=== PATIENT | female | born 1990 | race Caucasian/White ===

== ENCOUNTER 2016-08-07 17:17 | Inpatient (IN) ==
[2016-08-07] MEDS ORDERED: LEVAQUIN ONE (22:35)
[2016-08-07] MEDS ORDERED: TYLENOL ONE (22:35)
[2016-08-07] MEDS ORDERED: D5W ONE (22:35)
[2016-08-07] MEDS ORDERED: NS 1,000 ML ONE (22:35)
[2016-08-07] MEDS ORDERED: LOVENOX ONE (22:35)
[2016-08-07] MEDS ORDERED: SODIUM CHLORIDE 0.9% 10 ML ONE (22:48)
[2016-08-07] MEDS ORDERED: PROTONIX ONE (22:48)
[2016-08-07] MEDS ORDERED: VANCOMYCIN 1 GM/NS 1 GM/250 ML IVPB ONE (22:48)
--- NOTE | 2016-08-07 23:26 | Diag Imaging Result Document ---
PROCEDURE NAME: CHEST-PORTABLE - 08/07/2016 ERECT AP PORTABLE CHEST: TIME: 2105 hours. FINDINGS: There are patchy alveolar opacities bilaterally. There are no previous studies. IMPRESSION: Pneumonia.
[2016-08-07] MEDS ORDERED: MOTRIN ONE (23:46)
[2016-08-08 01:21] LABS: AGAP 13; CHLORIDE 95 mmol/L (98-107); POTASSIUM 4.4 mmol/L (3.5-5.1); SODIUM 134 mmol/L (136-145); TCO2 26 mmol/L (25-35)
[2016-08-08 01:22] LABS: ALBUMIN 2.4 g/dL (3.5-5.0); ALKALINE PHOSPHATASE 258 U/L (32-104); BUN 14 mg/dL (8-22); CALCIUM 8.1 mg/dL (8.8-10.2); COSMO 272; TOTAL PROTEIN 6.1 g/dL (6.3-8.3)
[2016-08-08 01:23] LABS: GOT 49 U/L (10-30); GPT 57 U/L (10-36)
[2016-08-08] MEDS ORDERED: ZOFRAN IV PRN (01:43)
[2016-08-08] MEDS ORDERED: VANCOMYCIN IV PER PHARMACY MISC SCH (01:45)
[2016-08-08] MEDS ORDERED: SODIUM CHLORIDE 0.9% INJ PRN (01:49)
[2016-08-08] MEDS ORDERED: PHENERGAN IV PRN (01:49)
--- NOTE | 2016-08-08 01:49 | HISTORY AND PHYSICAL ---
CHIEF COMPLAINT: Cough, low back pain and chest pain. HISTORY OF PRESENT ILLNESS: This is a 26-year-old female who presented to the emergency room today complaining of chest pain, cough, and low back pain that started last week but has progressively gotten worse. Her mother is at the bedside. States that she has for the last 3 days mostly not gotten out of her bed related to weakness and fatigue. On initial interview it was noted that the patient was jaundiced. Laboratory data and a chest x-ray were obtained which showed an elevated white blood cell count of 20.16, also showed an elevated total bilirubin of 3.90 with grossly normal liver function tests. ALT 57, AST 49. The chest x- ray showed bilateral lower lobe infiltrates consistent with pneumonia. Also should be noted that the patient was a heavy IV drug user for 6-7 years. She has been clean for almost 1 year. She has no real past medical history other than a slight mental disability that causes her to be on disability and unable to work as well as mild depression. She will be admitted to the medical floor inpatient for further evaluation and treatment. PAST MEDICAL HISTORY: 1. Depression. 2. History of IV drug use. 3. Tobacco abuse. PREVIOUS SURGICAL HISTORY: 1. Tonsillectomy. 2. BTL. SOCIAL HISTORY: Lives at home with her mother and father. She is disabled related to a mental disability and does not work. She denies current IV drug use or abuse. Denies alcohol use. Did have a 6-7 year of IV drugs usually opiates and she has been clean for almost 1 year. She is an everyday smoker, smokes roughly 10 cigarettes a day. FAMILY HISTORY: Grandmother at age 70 from myocardial infarction. Mother has osteoarthritis. HOME MEDICATIONS: Wellbutrin 50 mg p.o. daily. ALLERGIES: No known drug allergies. REVIEW OF SYSTEMS: Fourteen point review of systems pertinent positives were chest pain with cough that is reproducible with palpation, cough with no sputum, and low back pain. All other systems reviewed and found to be negative. PHYSICAL EXAMINATION: VITAL SIGNS: Temp 100.1 degrees, pulse 120, sinus tachycardia on monitor, respirations 18-22, oxygen saturation 98% on room air. GENERAL: Very ill-appearing 26-year-old female who is noted to be jaundiced. Answers all questions appropriately. Lying in the ER stretcher in no acute distress. HEENT: Head is atraumatic, normocephalic. Pupils equal, round, reactive to light. Extraocular eye movement intact. Sclerae is icteric. Conjunctiva is not pale. Oral mucosa is dry. NECK: Supple. No JVD. Trachea is midline. CARDIAC: Regular rhythm. Sinus tachycardia on monitor. Rate of 120. S1-S2 appreciated. A 2/6 systolic murmur best heard at the apex. No gallops. No rubs. CHEST: Symmetrical rise and fall with respirations. Chest pain which is reproducible to palpation. LUNGS: Decreased bilaterally. No rhonchi, wheezes or rales. Symmetrical rise and fall with respirations. ABDOMEN: Soft, nondistended. Tender mainly in the epigastric area. No rebound tenderness. No organomegaly. Bowel sounds present in all 4 quadrants normoactive. No pulsatile mass. EXTREMITIES: No clubbing, cyanosis, or edema. 2+ pedal pulses. GENITOURINARY: The patient voids, otherwise deferred. SKIN: Noted to be jaundiced, otherwise warm, dry and intact. NEUROLOGICAL: Alert and oriented x3. Cranial nerves 2-12 appear to be grossly intact. BACK: No costovertebral angle tenderness. No vertebral tenderness. Tenderness noted in right ischial tuberosity. DIAGNOSTIC DATA: Chest x-ray shows bilateral lower lobe infiltrates. LABORATORY DATA: WBC 20.16, hemoglobin 7.8, hematocrit 24, platelet count 464, 000. Sodium 134, potassium 4.4, chloride 95, carbon dioxide 26, BUN 8.1, creatinine 0.6, glucose 149, total bilirubin 3.90, alkaline phosphatase 258, ALT 57, AST 49. EKG shows sinus tachycardia with a rate of 120. Urine had 10-20 WBCs but was leukocyte esterase negative and no bacteria was noted. ASSESSMENT AND PLAN: 1. Bilateral lower lobe pneumonia. We will give Levaquin 750 mg IV daily as well as Rocephin 1 g IV daily. Blood cultures x2 have been ordered. 2. Possible endocarditis. Patient has a heavy past history of IV drug use and abuse. We will cover with vancomycin 1 g IV now and then Pharmacy to dose. We will consult Dr. Jose Roberto Almeida. Echocardiogram in a.m. 3. Anemia of questionable etiology. We will order anemia panel. 4. Hyperbilirubinemia. We will order right upper quadrant ultrasound. Liver enzymes were grossly normal. 5. History of intravenous drug use and abuse, aware. 6. Depression. Continue Wellbutrin 50 mg p.o. daily. ADDITIONAL ORDERS: We will use Lovenox 40 mg subcutaneously daily for VT prophylaxis. Normal saline at 100 mL an hour for gentle fluid rehydration. The patient as noted above was a fairly long-term IV drug user. We will check for HIV as well as a hepatitis panel. We will conduct a full body bone scan to rule out osteomyelitis. Dictated by NOAH Urias for Opal Martinez MD Patient was seen and examined by me . Case was discussed with LUMBER PILER OPERATOR. cc: NOAH Urias MD MTDD
[2016-08-08] MEDS ORDERED: LEVAQUIN 750 MG/D5W 750 MG/150 ML IVPB IV SCH (02:00)
[2016-08-08] MEDS ORDERED: ROCEPHIN 1 GM/NS 1 GM/50 ML IVPB IV SCH (02:00)
[2016-08-08] MEDS ORDERED: VANCOMYCIN 500 MG/NS 500 MG/100 ML IVPB IV ONE (02:00)
[2016-08-08 02:16] LABS: COLOR YELLOW; INR 1.13; UR EPITHELIAL CELLS <10 /HPF (<10); URINE BACTERIA NEGATIVE /HPF; URINE MICRO REVIEW NEEDED? NO; URINE RBC <10 /HPF (<10); URINE SOURCE CLEAN CATCH; URINE WBC <10 /HPF (<10)
[2016-08-08 02:17] LABS: GLUCOSE URINE NEGATIVE (NEGATIVE); TURBIDITY URINE HAZY (CLEAR)
[2016-08-08 02:18] LABS: BILIRUBIN URINE SMALL (NEGATIVE); BLOOD URINE MODERATE (NEGATIVE); PROTEIN URINE TRACE mg/dL (NEGATIVE); SP GRAVITY URINE 1.023
[2016-08-08 02:19] LABS: HEMOGLOBIN 7.8 g/dL (12.0-16.0); LEUKOCYTES URINE SMALL (NEGATIVE); MCH 21.2 PG (27-31); MCV 65.2 FL (81-99); NITRITE URINE NEGATIVE (NEGATIVE); RBC 3.68 XMIL (4.2-5.4); UROBILINOGEN URINE 4 mg/dL (NORMAL)
[2016-08-08 02:20] LABS: BASO% 0.2 % (0.0-0.8); EOS# 0.02 X1000 (0.0-0.7); EOS% 0.1 % (0.0-10.0); IMM GRAN# 0.19 X1000 (0.0-0.04); IMM GRAN% 0.9 % (0.0-0.5); LYMPH% 7.9 % (20.5-51.1); MANUAL DIFF NEEDED? YES; MCHC 32.5 g/dL (33-37); MONO# 1.09 X1000 (0.11-0.59); MONO% 5.4 % (1.7-9.3); MPV 10.9 FL (7.4-10.4); NEUT% 85.5 % (42.2-75.2); PLT 464 X1000 (130-400)
[2016-08-08 02:21] LABS: HYPOCHROM 2+; LYMPHS 8 % (21-51); MONO 2 % (1-9)
[2016-08-08 07:55] LABS: BASO% 0.2 % (0.0-0.8); EOS# 0.11 X1000 (0.0-0.7); EOS% 0.7 % (0.0-10.0); HEMATOCRIT 21.6 % (37.0-47.0); HEMOGLOBIN 6.7 g/dL (12.0-16.0); IMM GRAN# 0.19 X1000 (0.0-0.04); IMM GRAN% 1.1 % (0.0-0.5); LYMPH# 1.91 X1000 (1.2-3.4); LYMPH% 11.6 % (20.5-51.1); MANUAL DIFF NEEDED? YES; MCH 20.3 PG (27-31); MCV 65.5 FL (81-99); MONO# 1.06 X1000 (0.11-0.59); MONO% 6.4 % (1.7-9.3); MPV 10.7 FL (7.4-10.4); PLT 421 X1000 (130-400)
[2016-08-08 08:16] LABS: FERRITIN 351 ng/mL (13-150)
[2016-08-08 08:30] LABS: BANDS 8 % (0-1); LYMPHS 16 % (21-51); MONO 4 % (1-9)
[2016-08-08 08:31] LABS: HYPOCHROM 3+; TARGET CELLS OCCASIONAL
[2016-08-08 08:35] LABS: AGAP 11; BUN 16 mg/dL (8-22); CHLORIDE 99 mmol/L (98-107); COSMO 273; MAGNESIUM 2.2 mg/dL (1.5-2.7); POTASSIUM 4.1 mmol/L (3.5-5.1); SODIUM 136 mmol/L (136-145); TCO2 26 mmol/L (25-35)
[2016-08-08] MEDS: SODIUM CHLORIDE 0.9% INJ PRN (09:40)
[2016-08-08] MEDS: WELLBUTRIN PO SCH (09:40)
[2016-08-08] MEDS: PROTONIX IV SCH (09:40)
--- NOTE | 2016-08-08 12:59 | Diag Imaging Result Document ---
PROCEDURE NAME: US ABDOMEN-COMPLETE - 08/08/2016 ULTRASOUND ABDOMEN: FINDINGS: The gallbladder is visualized and demonstrates no abnormalities. There are no gallstones identified. The technologist reports negative sonographic Leigh sign. The common bile duct is normal caliber at 4 mm. There are no abnormalities of the liver identified. The spleen is borderline prominent, measuring approximately 13 cm in length by 6.4 cm in diameter. There is a small amount of ascites. There are apparent small bilateral pleural effusions. The renal cortices are possibly mildly echodense diffusely which can be seen with medical renal disease. There is no renal mass or hydronephrosis identified. Visualized portions of the pancreas are unremarkable. Abdominal aorta and IVC appear normal caliber. IMPRESSION: 1. No visible gallbladder abnormality. Normal caliber common bile duct at 4 mm. 2. No visible liver abnormality. Borderline splenomegaly. 3. Small amount of ascites. Apparent small bilateral pleural effusions.
--- NOTE | 2016-08-08 13:50 | PROGRESS NOTE ---
DATE: 08/08/2016 SUBJECTIVE: This is a 25 year old who presented with cough, low back pain and chest pain. She presented to the emergency room complaining of chest pain, cough, low back pain that started about a week ago and has had progression and got worse. Her mother is at the bedside and states it is for the last 3 days, mostly not gotten out of her bed, resulting weakness and fatigue. On initial interview, it was noted that the patient was jaundiced. Laboratory data and chest x-ray were obtained which showed elevated white blood cell count of 20,160, elevated total bilirubin of 3900, grossly normal liver functions, ALT was 57, AST was 49. Chest x-ray showed bilateral lower lobe infiltrate consistent with pneumonia. Also was noted the patient was a heavy IV drug user for 6 or 7 years. She reports she has been clean for a year. No real past medical history other than slight mental disability that causes her to be unable to work, with depression. PAST MEDICAL HISTORY: 1. Depression. 2. Six to 7 year history of IV drug use, is reported to be clean for a year. 3. Tobacco use. 4. Status post tonsillectomy. 5. Status post bilateral tubal ligation. ASSESSMENT: 1. She was admitted with bilateral lower lobe pneumonia, on Levaquin and Rocephin. 2. Possible endocarditis. We checked an echocardiogram. We asked Dr. Almeida to get involved as well. May need an esophageal echocardiogram. 3. Anemia of questionable etiology. 4. Hyperbilirubinemia with practically normal transaminases. 5. History of intravenous drug abuse, reported to be clean for a year. 6. Depression. PLAN: Looking at the orders, on vancomycin and ceftriaxone 1 g q.24 hours. Fluids going with normal saline at 100 mL an hour. She is on Lovenox 40 mg subcutaneously q.24 hours. She is also on Levaquin 750 mg IV q.24 hours. We will continue present therapy. cc: Norris Oliveira MD
[2016-08-08] MEDS: VANCOMYCIN 1,500 MG in NS 250 ML IV SCH (16:22)
--- NOTE | 2016-08-08 16:45 | CONSULTATION ---
DATE OF CONSULTATION: 08/08/2016 CONCLUSION: The patient is admitted to the hospital with bilateral pneumonia. She has a history of IV drug abuse. She is complaining of pain in her low back area and in the right hip area, which could represent an infection. RECOMMENDATIONS: I have ordered a sputum Gram stain and culture. I agree with treating the patient with vancomycin. I have substituted cefepime for Rocephin and Levaquin. Dr. Oliveira has already ordered an echocardiogram. PRESENT ILLNESS: The patient tells me that for the past 4 days she has had a cough occasionally productive of green sputum. She has also had fever up to 106 degrees. She complains of being dyspneic. Her chest x-ray shows bilateral opacities. CBC shows a white count that has gotten down to 16,530, hemoglobin 6.7, and platelet count 421,000. Creatinine is 0.6. GFR is greater than 60. Bilirubin is 3.9 and alkaline phosphatase is 258. The patient has been started on a combination of Rocephin, Levaquin, and vancomycin. PAST MEDICAL HISTORY/REVIEW OF SYSTEMS: Eyes and Ears: She denies difficulty hearing or seeing. Neck: No stiffness. Respiratory: The patient is coughing and on x-ray has what appears to be bilateral pneumonia. Cardiovascular: No chest pain or palpitations. Gastrointestinal: No nausea or vomiting. Patient has not passed a stool for 2 days. Genitourinary: She is not having dysuria or flank pain. Neurologic: The patient is complaining of low back pain and pain in the right hip. She does not have any motor or sensory loss. She is not having seizures. Endocrine: No history of diabetes or thyroid disease. Bones, Joints, Muscles: She is having pain in her low back and in the right hip area. The remainder of the patient's review of systems was completed and was negative. PROGRAMMING SPECIALIST HISTORY: She is a 2, para 2, AB 0. She has had a tubal ligation. Her last menstrual period was mid July. She is not on any control device. PREVIOUS HOSPITALIZATIONS AND OPERATIONS: She has had labor and deliveries, and a tubal ligation. MEDICAL DISEASES: Positive for depression. Patient is an IV drug abuser. Her last time was approximately a year ago. INFECTIOUS DISEASE HISTORY: Positive for UTI. Negative for pneumonia. FAMILY HISTORY: Positive for diabetes mellitus, myocardial infarction, and cancer. SOCIAL HISTORY[place] She sm[place] cigarettes. She does not have any pets at home. She is a single mother. She is raising her children. HOME MEDICATIONS: Subutex, Wellbutrin, ibuprofen, and Leidy-Colace. PHYSICAL EXAMINATION: Vital Signs: Temperature is 97.9 degrees, pulse 87, respirations 16, blood pressure 85/53. General: This is a somewhat ill-appearing young female. She is in no acute distress, however. Head, Eyes, Ears, Nose, Throat: She can hear my spoken words and see near objects. No drainage noted from the nose or ears. The patient's oral hygiene was good. Neck: No meningismus. Lungs: Clear to auscultation. Cardiovascular: Heart rate was rapid with a systolic murmur. Abdomen: Soft and nontender. Bones, Joints, Muscles: When I moved the patient's right hip passively, she did have pain. There was no swelling or erythema in the right hip area. The low back area was not tender or swollen. Neurologic: Patient is awake. She can move her extremities. There is no tremor. Her sensation is intact to touch. Her memory, as regarding her medical history, appeared to be intact. Thank you for the consult. cc: Jose Roberto Almeida MD
[2016-08-08] MEDS: NS 1,000 ML IV SCH (18:00)
[2016-08-08] MEDS: TYLENOL PO PRN (20:32)
[2016-08-08] MEDS: MAXIPIME 2 GM/NS 2 GM/100 ML IVPB IV SCH (20:34)
[2016-08-08] MEDS: LOVENOX SUBQ SCH (21:05)
[2016-08-08] MEDS: MOTRIN PO PRN (23:04)
[2016-08-09] MEDS: VANCOMYCIN 1,500 MG in NS 250 ML IV SCH ×2 (00:33→14:19)
[2016-08-09] MEDS: NS 1,000 ML IV SCH ×3 (04:34→17:57)
[2016-08-09] MEDS: TYLENOL PO PRN ×2 (04:34→20:48)
[2016-08-09] MEDS: MAXIPIME 2 GM/NS 2 GM/100 ML IVPB IV SCH ×2 (10:39→20:42)
[2016-08-09] MEDS: WELLBUTRIN PO SCH (10:40)
[2016-08-09] MEDS: PROTONIX IV SCH (10:40)
[2016-08-09 10:43] LABS: HIV ANTIBODY SCREEN SEE COMMENTS
--- NOTE | 2016-08-09 11:15 | EKG Report ---
Test Performed on : 08/07/2016 8:18:19 PM Test Reason : ED. Not ordered in [place] Blood Pressure : / mmHG Vent. Rate : 120 BPM Atrial Rate : 120 BPM P-R Int : 132 ms QRS Dur : 084 ms QT Int : 302 ms P-R-T Axes : 059 018 062 degrees QTc Int : 426 ms Sinus tachycardia. Otherwise normal ECG No previous ECGs available Unconfirmed Result
[2016-08-09 11:52] LABS: BASO% 0.2 % (0.0-0.8); EOS# 0.03 X1000 (0.0-0.7); EOS% 0.2 % (0.0-10.0); HEMATOCRIT 26.2 % (37.0-47.0); HEMOGLOBIN 8.5 g/dL (12.0-16.0); IMM GRAN# 0.31 X1000 (0.0-0.04); IMM GRAN% 1.8 % (0.0-0.5); LYMPH# 1.25 X1000 (1.2-3.4); LYMPH% 7.2 % (20.5-51.1); MANUAL DIFF NEEDED? YES; MCH 22.3 PG (27-31); MCHC 32.4 g/dL (33-37); MCV 68.6 FL (81-99); MONO# 0.48 X1000 (0.11-0.59); MONO% 2.8 % (1.7-9.3); MPV 10.3 FL (7.4-10.4); NEUT% 87.8 % (42.2-75.2); PLT 511 X1000 (130-400); RBC 3.82 XMIL (4.2-5.4)
[2016-08-09 11:56] LABS: HEPATITIS PROFILE ACUTE SEE COMMENTS
[2016-08-09 12:14] LABS: BANDS 5 % (0-1); LYMPHS 6 % (21-51); MONO 3 % (1-9)
[2016-08-09 12:15] LABS: HYPOCHROM 1+
[2016-08-09 12:16] LABS: TARGET CELLS OCCASIONAL
--- NOTE | 2016-08-09 13:35 | PROGRESS NOTE ---
DATE: 08/09/2016 SUBJECTIVE: Ms. Sullivan is feeling better. She is eating lunch. Remains afebrile. PHYSICAL EXAMINATION: Vital Signs: Temperature 98.9 degrees, pulse 110, respirations 16, blood pressure 102/64. Lungs: Are clear anterolateral and posterior. Cardiovascular Examination: Regular rhythm and rate without murmur or S3. Abdomen: Soft. Skin: Is warm and dry. Is and Os: Good urine output by report. LAB: Reviewed from this morning, white count 17,260, hematocrit 26, platelet count 511,000. Electrolytes: Sodium 136, potassium 4.2, chloride 99, BUN 16, creatinine 0.6. ASSESSMENT AND PLAN: 1. Bilateral pneumonia. 2. History of intravenous drug use. 3. Complaining of pain in her lower back and right hip area which could represent infection as well. PLAN: Dr. Almeida is following. I ordered a Gram stain and culture. Treating patient with vancomycin, substituted cefepime for Rocephin and Levaquin. Echocardiogram has been ordered, transthoracic. Continue present therapy. She is complaining of some right arm and right leg pain, try to avoid IV opioids if we can. cc: Norris Oliveira MD
--- NOTE | 2016-08-09 14:54 | PROGRESS NOTE ---
DATE: 08/09/2016 PRESENT ILLNESS: The patient was admitted to the hospital. She has a bilateral pneumonia. In addition, she is complaining of pain in the low back area and the right hip area, the etiology of which is uncertain to me at this time. MEDICATIONS: The patient is receiving intravenous cefepime and vancomycin. This is day 1 of treatment with them. PHYSICAL EXAMINATION: Vital Signs: Temperature is 98.9 degrees, pulse 113, respirations 14, blood pressure 102/64. General: This is a somewhat ill-appearing, young female. She is in no acute distress at this time. Ear/nose/throat: No drainage noted from the nose or ears. Lungs: Clear to auscultation. Cardiovascular: Regular heart rate. Abdomen: Soft and nontender. The patient said that it caused her some pain when I flexed at the right hip passively. There was no swelling in either hip area. LAB AND X-RAY: Patient's CBC for today showed a white count of 17,260, hemoglobin 8.5, and platelet count 511,000. Blood cultures thus far are sterile. HIV antibodies were negative. Hepatitis profile was nonreactive. The patient had a bone scan today, the results of which are pending. ASSESSMENT AND PLAN: Patient has pneumonia. She may have a bone or joint infection also. My plan is to continue her antibiotics and to find the results of the bone scan. COMORBIDITY: Her main comorbidity is IV drug abuse, which she told me she has not done in approximately 1 year. cc: Jose Roberto Almeida MD
--- NOTE | 2016-08-09 14:59 | Diag Imaging Result Document ---
PROCEDURE NAME: BONE SCAN, TOTAL BODY - 08/09/2016 THREE PHASE BONE SCAN: FINDINGS: 28.3 mCi of MDP administered. Coned down images over of the pelvis were obtained. There is symmetrical activity on the immediate blood flow images. Symmetrical activity remains on the 5, 10, and 15 minute delayed images. No focal area of abnormal increased activity within the pelvis on the delayed images. The hips are symmetrical as are the sacroiliac joints. Mild increased activity in the mid lumbar spine may simply be degenerative changes. IMPRESSION: No evidence of osteomyelitis involving the pelvis.
--- NOTE | 2016-08-09 16:19 | ECHO REPORT ---
ORDER DATE: 08/08/2016 INTERPRETING PHYSICIAN: Dr. Fitzpatrick REQUESTING PHYSICIAN: CLINICAL INDICATIONS: This is a 25-year-old female with chest pain, cough, fatigue. M-MODE MEASUREMENTS: Right ventricle: 2.6 cm. Left ventricle end diastole: 4.9 cm. Left ventricle end systole: 2.6 cm. Posterior wall: 1.0 cm. Interventricular septum: 1.0 cm. Left atrium: 2.6 cm. Aortic root: 3.1 cm. SUMMARY OF 2-DIMENSIONAL IMAGIN. The left ventricular function appears to be normal. Ejection fraction is 60%. No wall motion abnormality. 2. The right ventricle appears to be normal. 3. The atria appear to be normal. 4. Inferior vena cava is not dilated. 5. The tricuspid valve is abnormal. It shows thickening of the lateral and septal leaflets. There is a mobile element to it. The longest dimension in the AP dimension is 1.1 cm. The width is 1.2 cm. That is consistent with a vegetation. Color flow mapping shows a mild to moderate degree of regurgitation. The vegetation has some mobile element to it. 6. The pulmonic valve looks normal. Color flow mapping is unremarkable. 7. Mitral valve looks normal. Color flow mapping shows mild degree of regurgitation. 8. Pulse wave Doppler of mitral inflow is normal. 9. Tissue Doppler of septal and lateral mitral annulus averages 6 cm. 10.Pulmonary venous flow is normal. 11.There is no diastolic dysfunction. 12.Aortic valve looks normal. Color flow mapping is unremarkable. 13.There is no pericardial effusion, mass or thrombus. CONCLUSIONS: 1. Normal left ventricular systolic function. 2. Mild to moderate degree of tricuspid regurgitation with the presence of a vegetation at the level of the tricuspid valve. This is a diagnostic study for this condition based on the patient's history. 3. Mild degree of mitral regurgitation with normal diastolic function. 4. Pulmonary systolic pressure is estimated at 39 mmHg. Clinical correlation is recommended. cc: MD Segundo Chapman CRNP
[2016-08-09] MEDS: MOTRIN PO PRN (17:58)
[2016-08-09] MEDS: LOVENOX SUBQ SCH (21:13)
[2016-08-10] MEDS: NS 1,000 ML IV SCH ×3 (01:24→16:39)
[2016-08-10] MEDS: VANCOMYCIN 1,800 MG in NS 250 ML IV SCH ×2 (01:57→14:44)
[2016-08-10] MEDS ORDERED: NS 500 ML IV ONE (09:17)
[2016-08-10] MEDS ORDERED: TYLENOL PO ONE (09:17)
--- NOTE | 2016-08-10 09:24 | EKG Report ---
Test Performed on : 08/10/2016 09:10:04 AM Test Reason : chest pain Blood Pressure : / mmHG Vent. Rate : 141 BPM Atrial Rate : 141 BPM P-R Int : 130 ms QRS Dur : 080 ms QT Int : 264 ms P-R-T Axes : 043 -15 069 degrees QTc Int : 404 ms Sinus tachycardia. Low voltage QRS Borderline ECG When compared with ECG of 07-AUG-2016 20:18, (Unconfirmed) Nonspecific T wave abnormality now evident in Inferior leads Confirmed by Margy GARVEY, Robert Jimenez ([id number]) on 08/11/2016 5:48:14 PM
[2016-08-10 09:52] LABS: BASO% 0.3 % (0.0-0.8); EOS# 0.03 X1000 (0.0-0.7); EOS% 0.2 % (0.0-10.0); HEMATOCRIT 25.1 % (37.0-47.0); HEMOGLOBIN 8.2 g/dL (12.0-16.0); IMM GRAN# 0.45 X1000 (0.0-0.04); IMM GRAN% 2.6 % (0.0-0.5); LYMPH# 1.86 X1000 (1.2-3.4); LYMPH% 10.8 % (20.5-51.1); MCH 22.3 PG (27-31); MCHC 32.7 g/dL (33-37); MCV 68.4 FL (81-99); MONO# 1.06 X1000 (0.11-0.59); MONO% 6.2 % (1.7-9.3); MPV 9.9 FL (7.4-10.4); NEUT% 79.9 % (42.2-75.2); PLT 589 X1000 (130-400); RBC 3.67 XMIL (4.2-5.4)
[2016-08-10] MEDS: PROTONIX IV SCH (09:53)
[2016-08-10] MEDS: WELLBUTRIN PO SCH (09:54)
[2016-08-10] MEDS: MAXIPIME 2 GM/NS 2 GM/100 ML IVPB IV SCH ×2 (09:54→21:23)
--- NOTE | 2016-08-10 10:07 | PROGRESS NOTE ---
DATE: 08/10/2016 SUBJECTIVE: This morning, a CAT call was called on Ms. Sullivan because of acute onset of centrally located chest pain associated with fever and borderline low blood pressure. Upon arrival, Ms. Sullivan was pretty much stable in bed. She says she was feeling fine except that she had pains all over her body. OBJECTIVE: Vital Signs: Blood pressure is 96/50, pulse of 130. Temperature is 101.8 degrees. General Examination: Ms. Sullivan is a 35-year-old, female. She was in bed. She did not seem to be in any remarkable distress. HEENT: Mucosa is pink, mildly dry. Anicteric and acyanotic. Neck: Supple. Chest: Good air entry bilaterally. Few bibasilar crepitations. Cardiovascular: Regular rate and rhythm. Tachycardic. No gallops. Abdomen: Soft, nontender. Bowel sounds were present. Extremities: No pedal edema. PICKER PACKER: Patient was alert and oriented x4. There is no focal neurological deficit. Laboratory Data: There is no lab work for today. Remarkable Studies: An echocardiogram which was done on 08/08/2016 shows mild to moderate degree of tricuspid regurgitation with presence of vegetation at the level of the tricuspid valve. This is a diagnostic study for the condition based on the patient's history. ASSESSMENT: 1. Sepsis, likely secondary to underlying endocarditis. 2. 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 3. Multifocal patchy bilateral pneumonia, likely secondary to septic emboli. 4. Microcytic anemia. The patient is status post 1 unit of packed red blood cell transfusion. Hemoglobin and hematocrit were 8.5 and 26.2 yesterday. We will repeat it this morning. 5. Generalized muscular pain. I am unsure if this is related to maybe some form of drug withdrawal or she does have an underlying chronic pain syndrome. GENERAL PLAN: Ms. Sullivan is relatively stable. However, she is tachycardic. She is febrile. She had a white count up to yesterday. She does show signs of sepsis. She is currently on vancomycin and cefepime. Blood cultures so far have been no growth for 48 hours. We are going to repeat her blood cultures. I will repeat a chest x-ray. We will continue with the current antibiotics. I am giving her bolus of 1000 mL of normal saline and continue with the gentle hydration. I will review the patient this afternoon to see if we have any labs back and make changes accordingly. Critical time spent 45 minutes. cc: Jeyson Friedman MD MTDD
[2016-08-10 10:08] LABS: MANUAL DIFF NEEDED? NO
[2016-08-10 10:09] LABS: AGAP 10; ALBUMIN 1.7 g/dL (3.5-5.0); ALKALINE PHOSPHATASE 147 U/L (32-104); BUN 13 mg/dL (8-22); CALCIUM 7.4 mg/dL (8.8-10.2); CHLORIDE 106 mmol/L (98-107); COSMO 276; GOT 22 U/L (10-30); GPT 24 U/L (10-36); POTASSIUM 4.3 mmol/L (3.5-5.1); SODIUM 138 mmol/L (136-145); TCO2 22 mmol/L (25-35); TOTAL BILIRUBIN 1.24 mg/dL (0.20-1.00); TOTAL PROTEIN 4.8 g/dL (6.3-8.3)
--- NOTE | 2016-08-10 11:07 | Diag Imaging Result Document ---
PROCEDURE NAME: CHEST-PORTABLE - 08/10/2016 SINGLE FRONTAL RADIOGRAPH OF THE CHEST: COMPARISON: 08/07/2016. FINDINGS: The dense and somewhat nodular opacities involving both lungs with a mid and lower lung zone predominance are essentially stable. Continued surveillance is recommended to assure complete resolution. No new consolidation is identified. Cardiac silhouette is stable. IMPRESSION: Stable chest.
[2016-08-10] MEDS: ULTRAM PO PRN ×2 (11:31→18:23)
[2016-08-10] MEDS ORDERED: NS 1,000 ML IV ONE (12:29)
--- NOTE | 2016-08-10 16:42 | PROGRESS NOTE ---
DATE: 08/10/2016 The patient's blood pressure was low again at about 12:14 and another bolus of about 500 mL was given and since then it has remained pretty much stabilized. I have discussed the case with Dr. Almeida, who is in agreement to get cardiology involved to evaluate for possible ADRIENNE. I have communicated with Dr. Bruno and he is willing to see the patient. Will make the patient NPO at least for now after midnight and Dr. Bruno will see her to make a decision if he would go ahead for ADRIENNE. We will also do a CT scan of the chest, abdomen, and pelvis to rule out any obscured abscess in the abdomen or pelvis from the endocarditis. For now the patient remains clinically stable. cc: Jeyson Friedman MD
--- NOTE | 2016-08-10 17:18 | PROGRESS NOTE ---
DATE: 08/10/2016 PRESENT ILLNESS: The patient has been found on echocardiogram to have a tricuspid valve vegetation. In addition, she has nodular infiltrates in the lung which I think represent septic pulmonary emboli from her tricuspid valve endocarditis. MEDICATIONS: The patient is receiving a combination of cefepime and vancomycin. This is day 2 of treatment. PHYSICAL EXAMINATION: Vital Signs: Temperature maximum today was 101.8. Currently the temperature is 98.6 degrees, pulse 114, respirations 14, blood pressure 99/62. General: This is an ill-appearing, young female who is in no acute distress. Lungs: Clear to auscultation. Cardiovascular: Regular heart rate. I do not hear a murmur. Abdomen: Soft and nontender. Back: Not tender. LAB AND X-RAY: The echocardiogram shows a probable tricuspid valve vegetation. CBC today shows a white count of 17,160, hemoglobin 8.2 and platelet count 589,000. Creatinine is 0.5. GFR is greater than 60. The patient's liver function studies are elevated but they are less than they previously were. Chest x-ray shows nodular infiltrates which I think are septic emboli. ASSESSMENT AND PLAN: The patient appears to have tricuspid valve endocarditis with septic pulmonary emboli. My plan is to continue with her current antibiotics. Thus far, the blood cultures are sterile. COMORBIDITY: IV drug abuse. cc: Jose Roberto Almeida MD
--- NOTE | 2016-08-10 18:02 | CONSULTATION ---
DATE OF CONSULTATION: 08/10/2016 INDICATION: Endocarditis, consideration for transesophageal echo. HISTORY OF PRESENT ILLNESS: Ms. Sullivan is a 26-year-old, white female who presented to the emergency room complaining of chest discomfort, cough and low back pain that started the previous week. She presented and progressively worsened. Notably over the last several days she has been persistently febrile and an echocardiogram interpreted by Dr. Fitzpatrick on the suggested a mobile echodensity measuring 1.1 x 1.2 cm adherent to the tricuspid valve consistent with endocarditis. She has remained on antibiotics and continued to be febrile over that time. In addition, there has been some issue with relative hypotension with systolics frequently in the 80s to 90s. She complains of somewhat diffuse myalgias presently during my evaluation. She seems somewhat disinterested in the examination and frequently looks at her phone. PAST MEDICAL HISTORY: 1. Significant for depression. 2. History of IV drug use. 3. Tobacco abuse. SOCIAL HISTORY: She lives at home with her mother and father. She is disabled related to mental disability. She denies any current IV drug use. Denies any alcohol use. She smokes around half pack per day. FAMILY HISTORY: Grandmother had a history of myocardial infarction at the age of 70 but there is no early history of coronary disease in her first-degree relatives. REVIEW OF SYSTEMS: A 10 system review of systems is negative except for those things mentioned in HPI. PHYSICAL EXAMINATION: She continues to be febrile daily since her presentation on the . Most recent fever was 101.8 at 8:32 this morning. Her heart rate has been elevated as well with frequent runs in the 120s. Most recent was 114. Blood pressure 99/62.General: She is in no acute distress. HEENT: Oropharynx is moist. She has poor dentition. Eye examination shows pink conjunctivae, white sclerae. Neck: Examination shows no obvious thyromegaly or thyroid tenderness. Cardiovascular: She is in a regular rate and rhythm. She has no obvious murmurs. I did not hear an S3. She has no lower extremity edema. She is warm and well perfused in the lower extremities. Chest: Sounds clear by auscultation bilaterally. No increased work of breathing. Abdomen: Soft, nontender, nondistended. She has no obvious organomegaly. Skin Exam: Warm and dry throughout without any rashes. Neurological: Moving all extremities well. No focal deficits. PERTINENT DATA: LV function appears to be normal on her echo with an EF of 60%. Again the mobile echodensity suggesting a tricuspid valve vegetation measuring 1.1 x 1.2 cm. There is a moderate degree of tricuspid regurgitation. She has a mild degree of mitral regurgitation as well. Chest x-ray showed evidence of nodular opacities involving both lungs with mid and lower lung zone predominance noted and stable. Her laboratory data demonstrates a white count of 17.1 which has been stable over the last 3 days. Hematocrit 25.1, platelet count of 589,000. She did have a bandemia yesterday but it was not checked today. Sodium 138, potassium 4.3, BUN 13, creatinine 0.5. Her T bilirubin is 1.24 which is decreased from the initial. Her plasma lactate today was 2.9. 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 PLAN: She already had the diagnosis established via transthoracic echocardiogram as well as history. She continues to be febrile. It would be reasonable to do a transesophageal echo to further evaluate the patient from the standpoint of the size of the vegetation and further help characterize the structure of the tricuspid valve. We will consider doing the transesophageal echo in the morning. I have discussed the risks and benefits and alternatives with the patient. She agrees to proceed. cc: Jose J Bruno MD
[2016-08-10] MEDS: LOVENOX SUBQ SCH (21:23)
[2016-08-10] MEDS: TYLENOL PO PRN (23:13)
[2016-08-11] MEDS: NS 1,000 ML IV SCH ×4 (01:51→16:57)
[2016-08-11] MEDS: VANCOMYCIN 1,800 MG in NS 250 ML IV SCH ×2 (01:51→14:27)
[2016-08-11 07:53] LABS: BASO% 0.2 % (0.0-0.8); EOS# 0.13 X1000 (0.0-0.7); EOS% 0.8 % (0.0-10.0); HEMOGLOBIN 7.5 g/dL (12.0-16.0); IMM GRAN% 3.5 % (0.0-0.5); LYMPH# 2.72 X1000 (1.2-3.4); LYMPH% 15.7 % (20.5-51.1); MANUAL DIFF NEEDED? NO; MCHC 31.3 g/dL (33-37); MCV 70.4 FL (81-99); MONO# 1.07 X1000 (0.11-0.59); MONO% 6.2 % (1.7-9.3); MPV 9.6 FL (7.4-10.4); NEUT% 73.6 % (42.2-75.2); PLT 553 X1000 (130-400); RBC 3.41 XMIL (4.2-5.4)
[2016-08-11 08:00] LABS: AGAP 9; ALBUMIN 1.6 g/dL (3.5-5.0); ALKALINE PHOSPHATASE 132 U/L (32-104); BUN 10 mg/dL (8-22); CALCIUM 7.5 mg/dL (8.8-10.2); CHLORIDE 106 mmol/L (98-107); COSMO 272; GOT 24 U/L (10-30); GPT 20 U/L (10-36); SODIUM 137 mmol/L (136-145); TCO2 22 mmol/L (25-35); TOTAL BILIRUBIN 0.91 mg/dL (0.20-1.00); TOTAL PROTEIN 5.2 g/dL (6.3-8.3)
[2016-08-11 09:38] LABS: RETIC% 3.22 % (0.8-2.1); RETIC-HE 24.9 PG (28.2-36.6)
--- NOTE | 2016-08-11 10:09 | Diag Imaging Result Document ---
PROCEDURE NAME: THORAX/ABDOMEN/PELVIS - 08/11/2016 CT CHEST, ABDOMEN AND PELVIS WITH INTRAVENOUS CONTRAST: TECHNIQUE: Dose-reduction protocol. CHEST WITH CONTRAST: COMPARISON: No comparison films. FINDINGS: There are small bilateral pleural effusions. The one on the left measures 2.4 cm posteriorly and inferiorly in the midline where as the one on the right measures 1.7 cm. There is also a small pericardial effusion. This measures 8 mm anteriorly on the left. The heart is not enlarged. No thoracic aortic aneurysm or dissection. There are mildly enlarged mediastinal and hilar lymph nodes. There are multiple bilateral cavitary nodules. These are scattered throughout both lungs. There may be an underlying infiltrate in the left lower lobe as well. There is atelectasis to the lower lobes. There are prominent axillary lymph nodes. IMPRESSION: There are many bilateral cavitary nodules representing an infectious process or less likely malignancy. There are also pleural effusions and a pericardial effusion in addition to enlarged axillary, mediastinal, and hilar lymph nodes. ABDOMEN AND PELVIS WITH ORAL AND INTRAVENOUS CONTRAST: FINDINGS: The spleen is enlarged measuring approximately 15 cm. No focal hepatic abnormality. The gallbladder is contracted. There is a small amount of abdominal and pelvic ascites. Normal pancreas, adrenal glands, and kidneys. Questionable 1 mm right renal stone. Prominent sclerosis to the L1 and L2 vertebrae. There are lucent areas inferiorly within the L1 vertebra and superiorly in the L2 vertebra. There is disk space narrowing and irregularity to the inferior endplate of the L1 vertebra and the superior endplate of the L2 vertebra. No bowel obstruction. Normal appendix. No abscess. The urinary bladder is moderately distended. Normal uterus. Neither ovary is enlarged. There is subcutaneous edema. IMPRESSION: 1. Findings may represent diskitis with osteomyelitis involving the L1 and L2 vertebrae. 2. Splenomegaly. 3. [id number] amount of abdominal and pelvic ascites. I have been unable to reach the physician or physician's assistant program manager on the floor thus the preliminary report was given to the patient's nurse at 9:55 a.m.
[2016-08-11] MEDS: WELLBUTRIN PO SCH (10:41)
[2016-08-11] MEDS: SODIUM CHLORIDE 0.9% INJ PRN (10:41)
[2016-08-11] MEDS: PROTONIX IV SCH (10:41)
[2016-08-11] MEDS: MAXIPIME 2 GM/NS 2 GM/100 ML IVPB IV SCH (10:41)
[2016-08-11] MEDS: ULTRAM PO PRN ×2 (13:58→23:45)
--- NOTE | 2016-08-11 16:02 | PROGRESS NOTE ---
DATE: 08/11/2016 SUBJECTIVE: Today Ms. Sullivan referred to be doing fine. Does not really have any major complaints except that she wanted the ADRIENNE to be done. OBJECTIVE: Vital signs: Blood pressure is 106/62, pulse of 114, temperature is 100, degrees. Patient has been running low-grade temperature since admission. General: Ms. Valdez is a 25- year-old female. She was in bed did not seem to be in any remarkable distress. HEENT: Mucosa is pink and moist. Anicteric. Acyanotic. Neck: Supple. Chest: Air entry is bilaterally reduced. There are diffuse bilateral crepitations. Cardiovascular : Regular rate and rhythm. I did not appreciate any murmurs. Abdomen: Soft. Extremities: No pedal edema. TAPPER OPERATOR: Patient is alert and oriented x4. LABORATORY DATA: WBC 17.37, hemoglobin is 7.5, platelet count of 553,000. Chemistry is reviewed, completely unremarkable except for albumin of 1.6 and a calcium of 7.5. DIAGNOSTIC STUDIES: A CT scan of the chest, abdomen and pelvis which was done earlier today shows many bilateral cavitary nodules representing an infectious process or less likely malignancy. There are also pleural effusions and pericardial effusions, in addition to enlarged axillary, mediastinal and hilar lymph nodes. In the abdomen, findings may represent diskitis with osteomyelitis involving L1 and L2, splenomegaly, small to moderate amount of abdominal and pelvic ascites. ASSESSMENT: 1. Sepsis, secondary to underlying endocarditis. 2. Tricuspid valve endocarditis. 3. Gram positive cocci bacteremia. We are still pending the Infectious Disease and sensitivity. 4. L1/L2 diskitis with possible osteomyelitis. This is also likely from the septic embolization from the heart. 5. Diffuse multifocal pneumonia, likely secondary to septic emboli. 6. Macrocytic anemia. The patient is status post 1 packed red blood cells transfusion. Hemoglobin and hematocrit has dropped slightly today. We will keep an eye on that. If it draws below 7, we would go ahead and transfuse the patient. 7. Remarkable hypoalbuminemia. Patient is now showing signs of fluid retention , both in the abdominal and the pleural cavities. I will go ahead and give her a dose of albumin to see if we can improve in the intravascular oncotic pressure. 8. Generalized muscular pains, which I think is related to the underlying infectious problem that she is going through. PLAN: So I spoke extensively today with Ms. Sullivan, and the fact that she does have septic emboli. She has gram positive bacteremia, which I think is probably a staph endocarditis and the fact that she is a previous IV drug abuser. I did make it clear that she will probably need an intravenous access for long-term antibiotic therapy. However, she would have to commit and promise that she is only going to be using the line for the antibiotic purposes and that she will be responsible for taking care of it and we will not be held responsible if she would she uses it for any other gains or any other type of use except for what it is meant for. She did accept that if we do put a line, she will be responsible and that she would not use it for any recreational purposes. The father was at the bedside during the entire discussion and he was also in agreement and that he would ensure that the daughter does not use it for any other purposes. cc: Jeyson Friedman MD MTDD
[2016-08-11] MEDS: ALBUMIN 25% IV SCH (16:58)
--- NOTE | 2016-08-11 17:16 | PROGRESS NOTE ---
DATE: 08/11/2016 PRESENT ILLNESS: The patient has tricuspid valve endocarditis along with septic pulmonary emboli. MEDICATIONS: The patient is receiving a combination of cefepime and vancomycin. This is day 3 of treatment with the medications. PHYSICAL EXAMINATION: Vital Signs: Temperature is 100 degrees, pulse 114, respirations 12, blood pressure 106/62. Generally: This is a somewhat ill-appearing, young female. She is in no acute distress. Lungs: Clear to auscultation. Cardiovascular: Regular heart rate. Abdomen: Soft and nontender. Back: Not tender. LABORATORY AND X-RAY: Today the patient's CBC showed a white count of 17,270, hemoglobin 7.5 and platelet count 553,000. Creatinine 0.5. GFR is greater than 60. Liver function studies are normal. The patient had a CT scan of the spine. It shows an L1 and L2 diskitis , splenomegaly and ascites. Both the patient's blood cultures are growing gram positive cocci. ASSESSMENT AND PLAN: 1. The patient has tricuspid valve endocarditis with septic emboli. She now appears also to have diskitis. I suspect that the gram-positive coccus in this patient will wrap turner to be Staphylococcus aureus. It could be methicillin-resistant Staph aureus. The patient's main comorbidity is intravenous drug abuse. 2. I have ordered a lumbar spine orthotic for the patient to wear in order to immobilize the spine. 3. Continue vancomycin, stop cefepime. COMORBIDITY: IV drug abuse. cc: Jose Roberto Almeida MD MTDD
[2016-08-11] MEDS: LOVENOX SUBQ SCH (23:12)
[2016-08-12] MEDS: VANCOMYCIN 1,800 MG in NS 250 ML IV SCH ×2 (01:32→18:48)
[2016-08-12 07:30] LABS: BASO% 0.2 % (0.0-0.8); EOS# 0.14 X1000 (0.0-0.7); EOS% 0.8 % (0.0-10.0); HEMATOCRIT 23.7 % (37.0-47.0); HEMOGLOBIN 7.3 g/dL (12.0-16.0); IMM GRAN# 0.49 X1000 (0.0-0.04); IMM GRAN% 2.7 % (0.0-0.5); LYMPH# 2.57 X1000 (1.2-3.4); LYMPH% 14.3 % (20.5-51.1); MANUAL DIFF NEEDED? YES; MCHC 30.8 g/dL (33-37); MCV 71.4 FL (81-99); MONO% 5.6 % (1.7-9.3); MPV 9.3 FL (7.4-10.4); NEUT% 76.4 % (42.2-75.2); PLT 570 X1000 (130-400); RBC 3.32 XMIL (4.2-5.4)
[2016-08-12 07:38] LABS: AGAP 10; ALBUMIN 1.8 g/dL (3.5-5.0); ALKALINE PHOSPHATASE 105 U/L (32-104); BUN 9 mg/dL (8-22); CALCIUM 7.5 mg/dL (8.8-10.2); CHLORIDE 107 mmol/L (98-107); COSMO 278; GOT 21 U/L (10-30); GPT 18 U/L (10-36); POTASSIUM 3.6 mmol/L (3.5-5.1); SODIUM 140 mmol/L (136-145); TCO2 23 mmol/L (25-35); TOTAL BILIRUBIN 0.99 mg/dL (0.20-1.00); TOTAL PROTEIN 5.1 g/dL (6.3-8.3)
[2016-08-12 07:51] LABS: BANDS 1 % (0-1); LYMPHS 8 % (21-51); MONO 1 % (1-9)
[2016-08-12 07:53] LABS: HYPOCHROM 2+
[2016-08-12] MEDS: NS 1,000 ML IV SCH ×3 (08:42→22:32)
[2016-08-12] MEDS: WELLBUTRIN PO SCH (09:08)
[2016-08-12] MEDS: TYLENOL PO PRN (09:09)
[2016-08-12] MEDS: PROTONIX IV SCH (09:09)
[2016-08-12] MEDS: ALBUMIN 25% IV SCH (09:10)
--- NOTE | 2016-08-12 14:25 | PROGRESS NOTE ---
DATE: 08/12/2016 SUBJECTIVE: Today, Ms. Sullivan referred to be doing fine and denies any chest pains or any shortness of breath. She thinks she is feeling a whole lot stronger than before. OBJECTIVE: Vital Signs: Blood pressure is 116/71, pulse is 118, temperature is 100 degrees, respiration is 18. On general Exam, Ms. Sullivan is a 25-year-old female. She was in bed. She did not seem to be in any distress. HEENT: Mucosa is slightly pale. Anicteric. Acyanotic. Neck is supple. Chest: Good air entry. There are just minimal coarse crepitations in the lung bases. Cardiovascular: Regular rate and rhythm. There is a 3/6 TR murmur audible today. Abdomen is soft, nontender. Extremities: There is trace pedal edema. STAFF REGISTERED NURSE: The patient is alert and oriented x4. LABORATORY DATA: WBC is 17.91, hemoglobin is 7.3, platelet count of 370,000. Chemistry is reviewed. It is completely unremarkable except for albumin of 1.8. ASSESSMENT: 1. Sepsis secondary to underlying endocarditis. 2. Tricuspid valve endocarditis. 3. Gram-positive cocci bacteremia. We are still pending the ID and sensitivity on this. 4. L1/L2 diskitis with possible osteomyelitis. We think this is due to septic embolization from the endocarditis. 5. Diffuse multifocal pneumonia due to septic emboli. 6. Microcytic anemia. Hemoglobin and hematocrit continues to drop. I think this is all related to the acute infection ongoing. We are going to transfuse the patient 2 more units of PRBC. Since it has been progressively declining, we know he is going to bottom down tomorrow. 7. Mild fluid retention, which I think is related to the severe hypoalbuminemia. The patient got 50 mg of albumin infusion, and I think also with the blood transfusion she would also be able to retain fluid in her intravascular space. 8. General eye muscle pains, improved. 9. Diarrhea of unclear etiology. The patient is on antibiotics, so we ordered stool studies to rule out Clostridium difficile. PLAN: We are pending the ID on the gram-positive bacteria which I presume it is going to be Staphylococcus, and we are still pending Cardiology evaluation to see if they will be doing the ADRIENNE. I did call [facility] yesterday for a Neurosurgery consult to evaluate for the osteomyelitis in the L1- L2, but the service is on diversion and because of that , they will not even put me with whoever is legal receptionist. For now, we will continue with the IV antibiotics. The patient is being seen by Infectious Disease and also Cardiology. cc: Jeyson Friedman MD MTDD
[2016-08-12] MEDS: ULTRAM PO PRN ×2 (16:35→20:32)
--- NOTE | 2016-08-12 18:11 | PROGRESS NOTE ---
DATE: 08/12/2016 SUBJECTIVE: The patient has tricuspid valve endocarditis, along with septic pulmonary emboli. More recently, we have discovered that she also has lumbar spine diskitis, most likely secondary to a hematogenous infection from her bacteremia. MEDICATIONS: The patient now is on vancomycin as a single agent. This is day 4 of treatment with the drug. PHYSICAL EXAMINATION: Vital Signs: Temperature is 98.9, pulse 99, respirations 18, blood pressure 121/78. General: This is a somewhat ill-appearing, young female. She is in no acute distress. Cardiovascular: Heart rate is regular. I did not hear a murmur. Abdomen: Soft and nontender. Lungs: Clear to auscultation. Neurologic: She can move her legs. She tells me that she is not having stool or urine incontinence. LABORATORY AND X-RAY: There is no new x-ray. The lab for today, CBC shows a white count of 17,910, hemoglobin 7.3 and platelet count 570,000, creatinine is 0.4. GFR is greater than 60. Liver function studies are normal. Blood cultures are growing gram-positive cocci the identity of which is uncertain at this time. ASSESSMENT AND PLAN: My plan is to continue with vancomycin as a single drug pending the identification and susceptibility of the positive blood culture. I ordered yesterday a lumbar orthotic because the patient has lumbar diskitis. It is not in yet, but the head nurse assures me that it will be here tomorrow and the patient will be wearing that. COMORBIDITY: IV drug abuse. cc: Jose Roberto Almeida MD MTDAnthony
[2016-08-12] MEDS: LOVENOX SUBQ SCH (22:29)
[2016-08-13] MEDS: TYLENOL PO PRN (03:37)
[2016-08-13] MEDS: ULTRAM PO PRN ×2 (03:37→12:55)
[2016-08-13] MEDS: NS 1,000 ML IV SCH ×2 (05:06→14:07)
[2016-08-13] MEDS: VANCOMYCIN 1,800 MG in NS 250 ML IV SCH (06:24)
[2016-08-13 07:39] LABS: BASO% 0.4 % (0.0-0.8); EOS# 0.14 X1000 (0.0-0.7); EOS% 0.9 % (0.0-10.0); HEMOGLOBIN 9.4 g/dL (12.0-16.0); IMM GRAN# 0.32 X1000 (0.0-0.04); IMM GRAN% 2.1 % (0.0-0.5); LYMPH% 18.2 % (20.5-51.1); MANUAL DIFF NEEDED? NO; MCH 24.8 PG (27-31); MCHC 32.4 g/dL (33-37); MCV 76.5 FL (81-99); MONO# 0.96 X1000 (0.11-0.59); MONO% 6.2 % (1.7-9.3); MPV 9.4 FL (7.4-10.4); NEUT% 72.2 % (42.2-75.2); PLT 482 X1000 (130-400); RBC 3.79 XMIL (4.2-5.4)
[2016-08-13 07:51] LABS: AGAP 4; ALBUMIN 2.1 g/dL (3.5-5.0); ALKALINE PHOSPHATASE 122 U/L (32-104); BUN 10 mg/dL (8-22); CALCIUM 7.7 mg/dL (8.8-10.2); CHLORIDE 108 mmol/L (98-107); COSMO 282; GOT 53 U/L (10-30); GPT 37 U/L (10-36); POTASSIUM 3.7 mmol/L (3.5-5.1); SODIUM 142 mmol/L (136-145); TCO2 30 mmol/L (25-35); TOTAL BILIRUBIN 0.75 mg/dL (0.20-1.00); TOTAL PROTEIN 5.1 g/dL (6.3-8.3)
[2016-08-13] MEDS: ALBUMIN 25% IV SCH (14:06)
[2016-08-13] MEDS: WELLBUTRIN PO SCH (14:07)
[2016-08-13] MEDS: PROTONIX IV SCH (14:07)
--- NOTE | 2016-08-13 15:34 | PROGRESS NOTE ---
DATE: 08/13/2016 SUBJECTIVE: Today Ms. Sullivan refers to be doing fine. She denied any complaint. OBJECTIVE: Vital signs: Blood pressure is 122/78, pulse of 105. Respiration is 20. Temperature is 98.8. General exam: Ms. Sullivan is a 25-year-old female. She was in bed, did not seem to be in any distress. Mucosa is pink and moist, anicteric and acyanotic. Neck: Supple. Chest: Air entry is bilaterally reduced. A few coarse crepitations in the lung bases. Cardiovascular: Regular rate and rhythm. There is 3/6 TR murmur audible in the left parasternal fifth intercostal space. Abdomen: Soft, nontender, mildly distended with some fluid shift in bowel. Extremities: Trace of pedal edema. Central nervous system: Patient is alert and oriented x4. LABORATORY DATA: WBC is down to 15.37. Hemoglobin is 9.4. Platelet count of 482. Chemistry is reviewed. Completely normal. AST is slightly up to 53. ALT is 37. Blood cultures have revealed MRSA. ASSESSMENT: 1. Severe sepsis secondary to underlying endocarditis. 2. Tricuspid valve endocarditis by methicillin-resistant Staphylococcus aureus. 3. Methicillin-resistant Staphylococcus aureus bacteremia. 4. L1-L2 discitis with osteomyelitis, likely due to septic embolization from endocarditis, and I suspect etiology is also methicillin-resistant Staphylococcus aureus. 5. Diffuse multifocal methicillin-resistant Staphylococcus aureus pneumonia due to septic emboli. 6. Microcytic anemia. Patient is status post three packed red blood cells transfusions. She got two yesterday. Hemoglobin and hematocrit have remained steady for today. We will keep trending these. 7. Mild fluid retention, which I think is from the hypoalbuminemia. 8. Diarrhea, likely due to antibiotic side effects. This is improving. Clostridium difficile is negative. 9. Generalized muscle weakness. So I think in general Ms. Sullivan is relatively stable. We are going to continue with the current antibiotics. We will be waiting for the second blood cultures to see if there is persistent bacteremia before we put in a central line for long-term antibiotic use. cc: Jeyson Friedman MD
--- NOTE | 2016-08-13 16:57 | PROGRESS NOTE ---
DATE: 08/13/2016 SUBJECTIVE: Ms. Sullivan reports a significant amount of discomfort located in the lower lumbar and sacral spine areas. There do not appear to be any acute traumatic areas in that location. She is tender to palpation along the spinous processes along that entire area. PHYSICAL EXAMINATION: Vital signs: She was last febrile above 100.4 on the at which point she was 100.8. Since that time, the highest T-max she had was 100.2 on the 6th. Heart rate of 105, blood pressure 122/78. Generally: She is in mild to moderate distress secondary to pain of the lower back area. Cardiovascular: She is tachycardic but regular. No murmurs. No S3. She has no lower extremity edema. Chest: Clear bilaterally. No increased work of breathing. Abdomen: Soft, nontender, nondistended. No obvious organomegaly. PERTINENT DATA: White count is 15.4, hematocrit is 29, platelet count is 482,000. Sodium is 142, potassium 3.7, BUN 10, creatinine 0.4. ASSESSMENT: Tricuspid valve endocarditis. PLAN: I would continue on antibiotic regimen. I have added in some ibuprofen 600 q.8 hours for pain associated with the osteomyelitis. She may need narcotic pain medication in the future but I will defer that to the primary team. Please contact us if we can be of further assistance with this patient. cc: Jose J Bruno MD
[2016-08-14] MEDS: LOVENOX SUBQ SCH ×2 (00:45→21:55)
[2016-08-14] MEDS: MORPHINE IV PRN ×6 (00:45→22:42)
[2016-08-14] MEDS: SEPTRA DS PO SCH ×3 (05:43→18:20)
[2016-08-14 08:06] LABS: BASO% 0.2 % (0.0-0.8); EOS# 0.15 X1000 (0.0-0.7); HEMATOCRIT 29.5 % (37.0-47.0); HEMOGLOBIN 9.4 g/dL (12.0-16.0); IMM GRAN# 0.25 X1000 (0.0-0.04); IMM GRAN% 1.6 % (0.0-0.5); LYMPH# 2.77 X1000 (1.2-3.4); LYMPH% 17.9 % (20.5-51.1); MANUAL DIFF NEEDED? NO; MCH 24.7 PG (27-31); MCHC 31.9 g/dL (33-37); MCV 77.4 FL (81-99); MONO# 0.82 X1000 (0.11-0.59); MONO% 5.3 % (1.7-9.3); MPV 9.7 FL (7.4-10.4); PLT 500 X1000 (130-400); RBC 3.81 XMIL (4.2-5.4)
[2016-08-14 08:26] LABS: BUN 9 mg/dL (8-22); TCO2 23 mmol/L (25-35); TOTAL PROTEIN 5.9 g/dL (6.3-8.3)
[2016-08-14 09:08] LABS: AGAP 13; ALBUMIN 2.3 g/dL (3.5-5.0); ALKALINE PHOSPHATASE 163 U/L (32-104); CHLORIDE 102 mmol/L (98-107); COSMO 274; GOT 54 U/L (10-30); GPT 56 U/L (10-36); POTASSIUM 3.8 mmol/L (3.5-5.1); SODIUM 138 mmol/L (136-145)
[2016-08-14] MEDS: ALBUMIN 25% IV SCH (09:48)
[2016-08-14] MEDS: PROTONIX IV SCH (09:49)
[2016-08-14] MEDS: WELLBUTRIN PO SCH (09:49)
[2016-08-14] MEDS: SODIUM CHLORIDE 0.9% INJ PRN (09:49)
[2016-08-14] MEDS: MOTRIN PO PRN (11:35)
--- NOTE | 2016-08-14 12:57 | PROGRESS NOTE ---
DATE: 08/14/2016 SUBJECTIVE: Today Ms. Sullivan refers to be doing okay. Denies any major complaints. She has been tolerating her diet. OBJECTIVE: Vital signs: Blood pressure 127/73, pulse is 117, respirations 28, temperature is 100 degrees. General: Objectively, Ms. Sullivan is a 25-year-old female. She was in bed. She did not seem to be in any distress. HEENT: Mucosa is pink and moist. Anicteric. Acyanotic. Chest: Good air entry bilateral. A few bibasilar crepitations. Cardiovascular : Regular rate and rhythm. There is some 3/6 TR member audible in the left parasternal fifth intercostal space. Abdomen: Soft, nontender. Mild fluid shifting dullness. Extremities: Trace pedal edema. ENGINEERING PROGRAM MANAGER: Patient is alert and oriented x4. LABORATORY DATA: WBC is 15.46, hemoglobin is 9.4, platelet count is 500. Chemistry has been reviewed; completely unremarkable, except AST is 54, ALT is 56. Temperature is 100 degrees. I realize that the patient has been having low-grade temperatures; yesterday she had 101.6 and early this morning she had 100. Strangely, the patient is currently only on Bactrim p.o., and this was changed by Dr. Almeida. ASSESSMENT: 1. Severe sepsis secondary to underlying endocarditis. 2. Tricuspid valve endocarditis by methicillin-resistant Staphylococcus aureus. 3. Methicillin-resistant Staphylococcus aureus bacteremia. 4. L1-L2 diskitis with osteomyelitis due to septic embolization from endocarditis. 5. Diffuse multifocal methicillin-resistant Staphylococcus aureus pneumonia. 6. Microcytic anemia is improved after packed red blood cell transfusion. 7. Protein calorie malnutrition. 8. Diarrhea, resolved. 9. Generalized muscle weakness. PLAN: In general Ms. Sullivan clinically looks stable, however she continues to have spikes in temperature. Her vancomycin has been discontinued and she is currently only on p.o. Septra. I will defer further antibiotic therapy to our ID expert. I think Ms. Sullivan is going to be here until Tuesday until she is completely afebrile and we know the infection is under control. I will repeat the blood cultures for today since she continues to spike in temperature to make sure that we have the culture negative before we estimate end of therapy. cc: Jeyson Friedman MD [facility]
[2016-08-15] MEDS: MORPHINE IV PRN ×5 (05:37→22:06)
[2016-08-15] MEDS: SEPTRA DS PO SCH ×2 (05:41→18:26)
[2016-08-15 07:31] LABS: AGAP 12; ALBUMIN 2.5 g/dL (3.5-5.0); ALKALINE PHOSPHATASE 119 U/L (32-104); BUN 13 mg/dL (8-22); CALCIUM 7.9 mg/dL (8.8-10.2); CHLORIDE 105 mmol/L (98-107); COSMO 281; GOT 18 U/L (10-30); GPT 29 U/L (10-36); POTASSIUM 3.9 mmol/L (3.5-5.1); SODIUM 141 mmol/L (136-145); TCO2 24 mmol/L (25-35); TOTAL BILIRUBIN 0.73 mg/dL (0.20-1.00); TOTAL PROTEIN 6.2 g/dL (6.3-8.3)
[2016-08-15 07:33] LABS: BASO% 0.3 % (0.0-0.8); EOS# 0.08 X1000 (0.0-0.7); EOS% 0.5 % (0.0-10.0); HEMATOCRIT 28.1 % (37.0-47.0); HEMOGLOBIN 8.9 g/dL (12.0-16.0); IMM GRAN# 0.18 X1000 (0.0-0.04); IMM GRAN% 1.2 % (0.0-0.5); LYMPH# 2.13 X1000 (1.2-3.4); LYMPH% 14.2 % (20.5-51.1); MANUAL DIFF NEEDED? YES; MCH 24.7 PG (27-31); MCHC 31.7 g/dL (33-37); MCV 78.1 FL (81-99); MPV 9.5 FL (7.4-10.4); NEUT% 77.8 % (42.2-75.2); PLT 558 X1000 (130-400)
[2016-08-15] MEDS: ULTRAM PO PRN (08:36)
[2016-08-15] MEDS: SODIUM CHLORIDE 0.9% INJ PRN (08:36)
[2016-08-15] MEDS: WELLBUTRIN PO SCH (08:36)
[2016-08-15 08:59] LABS: LYMPHS 16 % (21-51); MONO 2 % (1-9)
[2016-08-15 09:00] LABS: TARGET CELLS 1+
[2016-08-15] MEDS: PROTONIX IV SCH (09:41)
--- NOTE | 2016-08-15 11:53 | PROGRESS NOTE ---
DATE: 08/15/2016 SUBJECTIVE: Today, Ms. Sullivan refers to be doing a lot better. She still complains of this pain in the right hip which almost makes it impossible for her to ambulate. OBJECTIVE: Vital Signs: Stable. Blood pressure is 127/70, pulse is 123, respirations are 24, temperature is 99.2 degrees. General Examination: Ms. Sulliavn is a 25-year-old, female. She is in bed. She did not seem to be in any distress. HEENT: Mucosa is pink and moist. Anicteric and acyanotic. Neck: Supple. Chest: Air entry is bilaterally reduced. There are diffuse bilateral end-inspiratory crackles. Cardiovascular: Regular rate and rhythm. There is a 3/6 TR murmur audible in the left parasternal, 5th intercostal space. Abdomen: Soft, nontender. There is mild fluid shift in dullness. Extremities: No pedal edema. SHEETMETAL WORKER: Patient is alert and oriented x4. There is no focal neurological deficit. Musculoskeletal: There is tenderness with the mobilization of the right hip. Laboratory Data: WBC is 14.97, hemoglobin is 8.9, platelet count is 558,000. Chemistry is reviewed and is completely unremarkable. ASSESSMENT: 1. Severe sepsis on presentation due to underlying endocarditis. 2. Tricuspid valve endocarditis by methicillin-resistant Staphylococcus aureus. 3. Methicillin-resistant Staphylococcus aureus bacteremia. Subsequent blood cultures done on 08/13/2016 have come back 48 hours negative. 4. Diffuse multifocal pneumonia due to methicillin-resistant Staphylococcus aureus (septic emboli pneumonia). 5. Microcytic anemia which I think is related to the current infectious disease. The patient is status post 3 packed red blood cell transfusion. Hemoglobin and hematocrit continue to be stable. 6. Protein calorie malnutrition. 7. Diarrhea, resolved. 8. Right hip pain. Concern for a septic joint. We will do a CT scan of the hip to make sure there is no septic joint that needs to be addressed. 9. L1-L2 diskitis with osteomyelitis due to septic embolization from endocarditis (likely methicillin-resistant Staphylococcus aureus bacteriology as well). PLAN: In general, Ms. Sullivan is doing fine. We will do a CT scan of the right hip to rule out a septic joint. We will also continue with the current antibiotics. I think patient is getting to where we will be able to discharge hopefully tomorrow if it is okay with both cardiology and infectious disease. cc: Jeyson Friedman MD
--- NOTE | 2016-08-15 12:54 | Diag Imaging Result Document ---
PROCEDURE NAME: CT PELVIS WITH IV CONTRAST ONL - 08/15/2016 CT PELVIS WITH INTRAVENOUS CONTRAST, 08/15/2016: A CT dose reduction protocol was used. COMPARISON: 08/11/2016. FINDINGS: There is significant flank edema about the pelvis. There is moderately large ascites. The pelvic organs are grossly normal. The bones are intact and normally aligned with preserved joint spaces. No destructive bony lesions. No evidence of hip joint effusion. No abnormal contrast enhancement. IMPRESSION: Flank edema and ascites. No specific abnormality of the hips. [facility]
[2016-08-15] MEDS: LOVENOX SUBQ SCH (22:07)
[2016-08-16] MEDS: MORPHINE IV PRN ×6 (02:14→23:32)
[2016-08-16] MEDS: SEPTRA DS PO SCH ×2 (06:15→17:00)
[2016-08-16] MEDS: PRILOSEC PO SCH (06:15)
[2016-08-16 07:10] LABS: MANUAL DIFF NEEDED? NO
[2016-08-16 07:11] LABS: BASO% 0.2 % (0.0-0.8); EOS# 0.21 X1000 (0.0-0.7); EOS% 1.4 % (0.0-10.0); HEMATOCRIT 27.9 % (37.0-47.0); HEMOGLOBIN 8.8 g/dL (12.0-16.0); IMM GRAN# 0.13 X1000 (0.0-0.04); IMM GRAN% 0.9 % (0.0-0.5); LYMPH# 2.48 X1000 (1.2-3.4); LYMPH% 17.1 % (20.5-51.1); MCH 25.1 PG (27-31); MCHC 31.5 g/dL (33-37); MCV 79.5 FL (81-99); MONO# 0.91 X1000 (0.11-0.59); MONO% 6.3 % (1.7-9.3); MPV 9.4 FL (7.4-10.4); NEUT% 74.1 % (42.2-75.2); PLT 566 X1000 (130-400); RBC 3.51 XMIL (4.2-5.4)
[2016-08-16 07:21] LABS: AGAP 12; ALBUMIN 2.6 g/dL (3.5-5.0); ALKALINE PHOSPHATASE 122 U/L (32-104); BUN 10 mg/dL (8-22); CALCIUM 8.4 mg/dL (8.8-10.2); CHLORIDE 103 mmol/L (98-107); COSMO 276; GOT 24 U/L (10-30); GPT 32 U/L (10-36); POTASSIUM 4.3 mmol/L (3.5-5.1); SODIUM 139 mmol/L (136-145); TCO2 24 mmol/L (25-35); TOTAL BILIRUBIN 0.91 mg/dL (0.20-1.00); TOTAL PROTEIN 6.2 g/dL (6.3-8.3)
[2016-08-16] MEDS: WELLBUTRIN PO SCH (08:38)
--- NOTE | 2016-08-16 13:54 | PROGRESS NOTE ---
DATE: 08/16/2016 SUBJECTIVE: Today Ms. Sullivan referred to be doing fine. Still complained of a little bit of pain in the right hip. OBJECTIVE: Vital signs: Blood pressure is 114/65, pulse of 119, respirations 18, temperature 98.2 degrees. General: Ms. Sullivan is a 25-year-old female. She was in bed. No distress. HEENT: Mucosa is pink and moist. Anicteric. Acyanotic. Neck: Supple. Chest: Air entry is bilaterally reduced. There are still diffuse bilateral and inspiratory crackles in both lung mckeon. Cardiovascular: Regular rate and rhythm. There is a 3/6 TR murmur audible in the left parasternal 5th intercostal space. Abdomen: Soft, nontender. There is mild fluid shift. Extremities: No pedal edema. SHOP TAILOR: Patient is alert and oriented x4. There is no focal neurological deficit. Musculoskeletal: There is still some tenderness with mobilization of the right hip. However a CT scan of the pelvic is completely normal. LABORATORY DATA: WBC is 14.54, hemoglobin is 8.8, platelet count of 566,000. Chemistries reviewed, completely normal. ASSESSMENT: 1. Severe sepsis on presentation due to underlying endocarditis. 2. 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 3. Methicillin-resistant Staphylococcus aureus bacteremia. The patient has subsequent 2 blood cultures after the initial positive blood cultures and they are negative for 48 hours. 4. Diffuse multifocal pneumonia due to septic emboli. 5. Microcytic anemia. Patient is status post 3 packed red blood cell transfusion. Hemoglobin and hematocrit continues to be stable. We think this is related to the underlying infectious disease. Iron studies were done on presentation which were unremarkable. Did show low serum iron but ferritin was high but this could also be because ferritin is an acute reactant and that the patient does have an underlying iron deficiency. However we will hold off on iron until the infection is completely resolved. 6. Protein calorie malnutrition. Patient is getting some diet supplements. 7. Diarrhea resolved. 8. L1-L2 diskitis with osteomyelitis. We suspect this is also due to septic embolization from the endocarditis. 9. Right hip pain. A CT scan of the of the hip yesterday was completely normal. I think this is just musculoskeletal pain. PLAN: In general Ms. Sullivan is doing fine. Two times blood cultures after the primary positive culture are negative. I spoke with Dr. Almeida today and he plans to send the patient home on IV antibiotics. We therefore going to go ahead and call the PICC line team for PICC line placement and I suspect the patient will be going home on vancomycin. This will be addressed in details by a Dr. Almeida with the patient. Of major concern patient is IV drug user. I have discussed multiple times the concern of going home with a PICC line and patient has promised to take care of this and not use it for any recreational purposes. She lives with the parents under the same roof and the father who was there a couple days ago and has been in hospital most times of her visit has promised also to help take care of the line. I think if the patient gets the PICC line today and IV infusion is arranged we can discharge her later today or 1st thing tomorrow morning. cc: Jeyson Friedman MD MTDD
[2016-08-16] MEDS ORDERED: NS 250 ML ONE (13:57)
[2016-08-16 14:19] LABS: INR 1.04
--- NOTE | 2016-08-16 15:31 | PROGRESS NOTE ---
DATE: 08/16/2016 PRESENT ILLNESS: The patient has methicillin-resistant Staph aureus, tricuspid valve endocarditis with septic pulmonary emboli and lumbar diskitis. MEDICATIONS: The patient is receiving vancomycin. This is day 4 of treatment with vancomycin, starting from when her 1st blood culture became negative. PHYSICAL EXAMINATION: Vital Signs: Temperature is 98.3 degrees, pulse 119, respirations 33. Blood pressure 114/65. Generally: This is a somewhat ill-appearing, young female. She is in no acute distress. She does report that her hip pain is better, and she is able to ambulate with less pain. Lungs: Clear to auscultation. Cardiovascular: Regular heart rate. Abdomen: Soft and nontender. Bilateral hips, there is no swelling or tenderness. She does have little bit of pain when the left hip is moved. LABORATORY AND X-RAY: The patient's CBC shows a white count of 1450, hemoglobin 8.8, and platelet count 566,000. Creatinine is 0.5. Alkaline phosphatase is 122. Pelvic CT scan shows flank edema and ascites, but no abnormalities were seen in either hip. ASSESSMENT AND PLAN: 1. The patient has methicillin-resistant Staphylococcus aureus method tricuspid valve endocarditis with septic pulmonary emboli and spinal diskitis. Our plan is now he is to have a PICC placed. Her repeat blood cultures have shown no growth for days and then the patient will be discharged. She lives with her parents. The patient says that she is not going to do any type of drug abuse. The parents have been told about their daughter's illness and the father said that they would watch her very closely, which is convenient because the patient lives with her parents. 2. Patient's comorbidity is intravenous drug abuse. 3. I will be seeing the patient back in my office in approximately 3-1/2 weeks. cc: Jose Roberto Almeida MD MTDD
--- NOTE | 2016-08-16 16:18 | PROGRESS NOTE ---
DATE: 08/16/2016 ADDENDUM: I discussed with the patient that when she gets her PICC in she cannot push, pull, or lift anything more than 5 pounds with the arm that has the PICC in it. Also I told her she should never get the dressing wet. I told her that if she showers do not spray the shower on the PICC in her arm and that it would be better to wrap it with some plastic wrap like Saran Wrap and then to tape both ends in order to keep the dressing dry. As regarding her back, I told her that she should not do anything to stress her back such as lifting up something heavy. I told her that the lumbar orthotic that she has now should be worn when she is sitting, standing, or walking. I will also be sending the patient to a spinal surgeon when she leaves the hospital to see if the surgeon feels any type of surgery on the back is needed. The patient lives with her parents. I talked with the patient's mother who said she and her father will watch the patient closely to make sure that the patient does not do any drug abuse. cc: Jose Roberto Almeida MD MTDD
[2016-08-16] MEDS: MOTRIN PO PRN (22:09)
[2016-08-16] MEDS: LOVENOX SUBQ SCH (22:09)
[2016-08-17] MEDS: MORPHINE IV PRN ×3 (05:46→14:13)
[2016-08-17] MEDS: SEPTRA DS PO SCH ×2 (05:47→16:10)
[2016-08-17] MEDS: PRILOSEC PO SCH (06:07)
[2016-08-17] MEDS: WELLBUTRIN PO SCH (08:18)
[2016-08-17 14:54] VITALS: BP 109/66
--- NOTE | 2016-08-17 20:20 | DISCHARGE SUMMARY ---
ADMISSION DATE: 08/07/2016 DISCHARGE DATE: 08/17/2016 CONSULTATIONS: 1. Jose Roberto Almeida M.D. with Infectious Disease. 2. Jose J Bruno M.D. with Cardiology. PERTINENT PROCEDURES: 1. Echocardiogram showed normal left ventricular systolic function, mild to moderate degree of tricuspid regurgitation with presence of vegetation at the level of the tricuspid valve. 2. Bone scan showed no evidence of osteomyelitis involving the pelvis. 3. [id number]-fbyrpxi-[id number] CT showed findings that represent discitis with osteomyelitis involving L1 and L2 vertebrae, splenomegaly, small to moderate amount of abdominal pelvic ascites. 4. Pelvis CT showed flank edema and ascites. DISCHARGE DIAGNOSES: 1. Severe sepsis on presentation secondary to endocarditis. Patient will be going home with IV antibiotics. Followed by Dr. Jose Roberto Almeida. 2. Tricuspid valve endocarditis with MRSA. Continue antibiotics. 3. MRSA bacteremia. Continue IV antibiotics. 4. Diffuse multifocal pneumonia due to septic emboli. 5. Microcytic anemia status post 3 packed red blood cell transfusions. Hemoglobin and hematocrit stable. Resolved. 6. Protein calorie malnutrition. Continue with diet supplements. 7. Diarrhea resolved. 8. L1-L2 discitis with osteomyelitis. Suspect secondary to septic emboli from endocarditis. 9. Right hip pain. CT scan of the hip was completely normal secondary to musculoskeletal pain. HOSPITAL COURSE: Briefly, Ms. Sullivan is a 26-year-old, female, who has a past medical history of IV drug use, depression, and tobacco abuse who presented to the emergency room complaining of chest pain, cough and low back pain that started a week prior to her admission that has progressively gotten worse. They stated that for 3 days the patient has not gotten out of bed related to weakness and fatigue. On initial interview the patient was noted to be jaundiced. Laboratory data and chest x-ray were obtained that showed elevated white count of 20, an elevated bilirubin of 3.90 with grossly normal liver function tests. Chest x-ray showed bilateral lower lobe infiltrates consistent with pneumonia. The patient was noted to be a heavy IV drug user for 6-7 years. She has been clean for almost a year. The patient was initially admitted for bilateral lower lobe pneumonia. She was started on IV Levaquin and Rocephin, and ruled out for the possibility of endocarditis that was confirmed with echocardiogram. Dr. Jose Roberto Almeida as well as Cardiology were consulted. They did add ibuprofen to her regimen for pain associated with osteomyelitis. The osteomyelitis was at L1 and L2 secondary to septic embolization from the endocarditis. Ms. Sullivan clinically is doing well. She has had 2 blood cultures after primary positive cultures that were negative. After speaking with Dr. Almeida, he plans to send the patient home on IV antibiotics. Patient did go in for a PICC line. She will be going home on IV antibiotics under Dr. Almeida. Our major concern with the patient was that she was an IV drug user. It has been discussed multiple times with the concern of her going home with a PICC line but the patient has promised to take care of it and not use it for recreational purposes. She lives with her parents under the same roof and the father who has been in the hospital also promised that he would help take care of the line. Social Service also spoke with the patient. She does live with both her parents. She has her own children ages 1 and 3. Patient is aware of the need for her extended IV antibiotics at discharge. She has good family support with her mom and dad, and she will be compliant with the MD orders. Patient is willing to sign an agreement stating that she will only use her IV access for MD ordered medications. [facility] came in. They will be supplying the medications. Patient is being discharged home today with IV antibiotics. VITAL SIGNS AT DISCHARGE: Temperature is 98.6 degrees, heart rate 105, respirations 19, blood pressure 115/68, O2 is 98%. DISCHARGE MEDICATIONS: 1. Wellbutrin 150 mg p.o. daily. 2. mg p.o. t.i.d. 3. Prilosec 40 mg p.o. daily. 4. Leidy-Colace 1 each p.o. at bedtime. Old medication. 5. tablets. Old medication. 6. IV vancomycin as per Dr. Jose Roberto Almeida. FOLLOWUP: 1. Patient is being discharged home with [facility]. 2. She will follow up with Dr. Jose Roberto Almeida in 25 days. 3. The patient will need to obtain a primary care physician and list was provided to her. 4. Again patient has agreed not to use her IV access for recreational use. 5. Patient can return to the ED for any worsening of symptoms. DISCHARGE TIME: 35 minutes. Dictated by NOAH Rivers for Landon Robledo MD cc: Landon Robledo MD [facility]
== END 2016-08-17 16:36 | disposition home health service (06) ==
LOC: ED 17:17 → 3N 23:52 → SUATTDRO 23:52 → 3N 08-13 13:05
PROVIDERS: ATTEND Internal Medicine

== ENCOUNTER 2018-09-06 01:23 | Inpatient (IN) ==
[2018-09-06 02:13] LABS: INFLUENZA A NEGATIVE (NEGATIVE); INFLUENZA B NEGATIVE (NEGATIVE)
[2018-09-06 02:56] LABS: UR AMPHETAMINES QUAL PRESUMPTIVE POSITIVE (NONE DETECT)
[2018-09-06 02:57] LABS: UR BARBITUATES QUAL NONE DETECTED (NONE DETECT); UR BENZODIAZEPIN QUAL NONE DETECTED (NONE DETECT); UR CANNABINOIDS QUAL NONE DETECTED (NONE DETECT); UR COCAINE QUAL NONE DETECTED (NONE DETECT); UR METHADONE QUAL NONE DETECTED (NONE DETECT); UR METHAMPHETAMINE QUAL PRESUMPTIVE POSITIVE (NONE DETECT); UR OPIATES QUAL NONE DETECTED (NONE DETECT); UR OXYCODONE QUAL NONE DETECTED (NONE DETECT); UR PCP QUAL NONE DETECTED (NONE DETECT); UR PROPOXYPHENE QUAL NONE DETECTED (NONE DETECT); UR TCA QUAL NONE DETECTED (NONE DETECT)
--- NOTE | 2018-09-06 03:25 | PROVIDER DOCUMENTATION ---
HPI-General Adult - General Chief Complaint: Cold Symptoms Stated Complaint: CONGESTION Time Seen by Provider: 09/06/18 01:25 Source: patient Allergies/Adverse Reactions: Patient Allergies Allergy/AdvReac Type Severity Reaction Status Date / Time No Known Allergies Allergy Verified 01/28/18 17:12 Home Medications: Home Medication List Medication Instructions Recorded Confirmed Last Taken Type Chlordiazepoxide HCl 5 mg PO BID 04/14/17 04/14/17 04/14/17 08:00 History Clorazepate Dipotassium 7.5 mg PO BID 04/14/17 04/14/17 04/14/17 08:00 History Cyclobenzaprine [Flexeril] 5 mg PO TID #30 tablet 04/14/17 Unknown Rx Divalproex E.r. [Depakote ER] 250 mg PO QAM 04/14/17 04/14/17 04/14/17 08:00 History Fluoxetine [Prozac] 20 mg PO QAM 04/14/17 04/14/17 04/14/17 08:00 History Gabapentin 300 mg PO QHS 04/14/17 04/14/17 04/13/17 History Meloxicam 15 mg PO WLUNCH 04/14/17 04/14/17 04/14/17 12:00 History Naproxen Sodium [Anaprox Ds] 550 mg PO BID #20 tablet 04/14/17 Unknown Rx Clindamycin [Cleocin] 300 mg PO Q6HR #40 cap 01/28/18 Unknown Rx Doxycycline 100 mg PO BID #14 tab 05/05/18 Unknown Rx - History of Present Illness -Gen Adult Nature of Presenting Problems: Patient is a 27 year old white female with history of IV drug abuse with secondary vertebral osteomyelitis,cavitary lung nodules,and infective endocarditis who presents with worsening chest congestion and productive green y ellow cough for past 2 days. Review of Systems - Adult - REVIEW OF SYSTEMS - ADULT Constitutional: reports: chills, fever Eyes: reports: no symptoms reported Ears, Nose, Mouth & Throat: reports: no symptoms reported Cardiovascular: reports: no symptoms reported Respiratory: reports: cough, shortness of breath Gastrointestinal: reports: no symptoms reported Genitourinary: reports: no symptoms reported Musculoskeletal: reports: no symptoms reported Integumentary: reports: no symptoms reported Neurological: reports: no symptoms reported Psychiatric: reports: anxiety Endocrine: reports: no symptoms reported Hematologic/Lymphatic: reports: see HPI Allergic/Immunologic: reports: no symptoms reported All Other Systems: Reviewed and Negative Past History - Adult - PAST MEDICAL HISTORY-ADULT Review of Records: reports: Old Records Reviewed, Nursing Assessment Review, Medications Reviewed, Social history reviewed & non-contributory. Major Childhood Illnesses: reports: denies history Cardiovascular: reports: other (ENDOCARDITIS) Respiratory: reports: asthma Gastrointestinal: reports: denies history Obstetrical/Gynecological: reports: denies history Genitourinary: reports: denies history Musculoskeletal: reports: chronic pain (back) Neurological: reports: denies history Psychiatric: reports: depression Endocrine/Immune: reports: denies history Other Conditions: reports: denies history - PRIOR SURGERIES/PROCEDURES Surgical/Procedure History: reports: tonsillectomy - IMMUNIZATION STATUS Childhood Immunizations: See Nurse Assessment Flu Vaccine: See Nurse Assessment - FAMILY HISTORY Family History: reviewed, not pertinent - SOCIAL HISTORY Smoking: less than 1 pack/day Provider spent 3-5 mins advising pt. on dangers of tobacco.: Discussed manners to quit use, and f/u contacts for add'l counseling. Substance Use: amphetamines Alcohol Use Frequency: occasionally Living Situation: family Physical Exam-General - PHYSICAL EXAM-ADULT Initial Vital Signs Reviewed: Yes - CONSTITUTIONAL General Appearance: alert, no apparent distress - EYES Eyes: other (clear) - HEAD, EARS, NOSE, MOUTH & THROAT HENMT: normocephalic/atraumatic, moist mucous membranes - NECK Neck: supple - RESPIRATORY Respiratory: no respiratory distress, no accessory muscle use, decreased breath sounds - CARDIOVASCULAR Cardiovascular: tachycardia - GASTROINTESTINAL (ABDOMEN) Abdominal Exam: non tender, soft - LYMPHATIC Lymphatic: no adenopathy - MUSCULOSKELETAL Back Exam: normal inspection, no CVA tenderness, no vertebral tenderness Extremity: normal range of motion, non-tender Peripheral Pulses: radial (R): 2+, radial (L): 2+ - SKIN Integumentary: normal color, normal turgor, warm/dry - NEUROLOGIC Neurologic: grossly normal, no motor/sensory deficits - PSYCHIATRIC Psych/Mental Status: anxious Progress - PLAN OF CARE/RESULTS Progress/Plan/Lab Results: Vital Signs - 8 hr 09/06/18 01:27 Temperature 99.4 F Pulse Rate 124 H Respiratory Rate 20 Blood Pressure 115/73 O2 Sat by Pulse Oximetry 99 Bedside Urine ED: Urine Bedside Start: 09/06/18 02:13 Freq: ORDERED Status: Inactive Protocol: Activity Type Activity Date Activity User E-Sign Co-Sign Detail Recorded Client Recorded Date Recorded By Edit Status 09/06/18 02:44 [id number] Active=>Inactive [id number] 09/06/18 02:44 [id number] Laboratory Results - last 24 hr 09/06/18 09/06/18 09/06/18 01:45 02:20 02:20 Urine Test NEGATIVE Urine Opiates Screen NONE DETECTED Ur Oxycodone Screen NONE DETECTED Urine Methadone Screen NONE DETECTED U Propoxyphene Qual NONE DETECTED Ur Barbituates Screen NONE DETECTED Ur Tricyclics Screen NONE DETECTED Ur Phencyclidine Scrn NONE DETECTED Ur Amphetamines Screen PRESUMPTIVE POSITIVE A U Methamphetamines Scrn PRESUMPTIVE POSITIVE A U Benzodiazepines Scrn NONE DETECTED Urine Cocaine Screen NONE DETECTED U Cannabinoids Screen NONE DETECTED Influenza A (Rapid) NEGATIVE Influenza B (Rapid) NEGATIVE Orders Category Date Time Status CHEST-2 VIEWS [RAD] Stat Exams 09/06/18 02:[address] Stat Lab 09/06/18 01:45 Completed TEST-URINE [PREG] Stat Lab 09/06/18 02:[address]UG S[address] Stat Lab 09/06/18 02:20 Completed Result Diagrams: 09/06/18 03:56 09/06/18 03:56 - XRAY 1 XRAY Study: Chest XRAY Interpretation: bilateral lower lobe patchy infiltrates - CONSULTS/PCP/HOSPITALIST Notification #1 *Consult/PCP/Hospitalist*: Dr. Sue, hospitalist Time Discussed: 05:00 Consult Disposition: Admit Departure - Departure Date of Disposition Decision: 09/06/18 Time of Disposition Decision: 06:48 DIAGNOSIS: Methamphetamine abuse Bilateral pneumonia Qualifiers: Pneumonia type: due to unspecified organism Lung location: unspecified part of lung Qualified Code(s): J18.9 - Pneumonia, unspecified organism Disposition: ADMITTED INPATIENT 09 Certified Medical Emergency: Emergent Condition: Stable Additional Freetext Instructions: ED Follow Up Instructions: You have been treated by a care provider in the Emergency Department. These instructions are being provided to you so you can have an understanding of how to care for yourself upon discharge. Upon discharge from the Emergency Department, you are responsible for making arrangements for follow-up care by a physician of your choice. Take all prescribed medications as directed. Return to the Emergency Department immediately for any new or worsening symptoms. You may call the Physician Referral phone number at [phone] to obtain a list of Physicians who are taking new patients. Referrals and Follow-Ups: Jose R Peoples MD [Primary Care Provider] - - Critical Care Note This patient required my direct & personal management of CC.: No Attestation - Physician/ LASHON Attestation Patient care was provided by Advanced Practice Provider:: No The physician spent face to face time with patient:: Yes Advanced Practice Provider documentation review:: Supervising physician onsite and consulted in the evaluation and care of this patient. The physician did have a face to face encounter with the patient.
[2018-09-06] MEDS ORDERED: VANCOMYCIN 1 GM/NS 1 GM/250 ML IVPB IV ONE ×2 (03:31→07:30)
[2018-09-06] MEDS ORDERED: ROCEPHIN 1 GM in NS 50 ML IV ONE (03:31)
[2018-09-06] MEDS ORDERED: NS 1,000 ML ONE (04:03)
[2018-09-06] MEDS ORDERED: NS 1,000 ML IV ONE (04:06)
[2018-09-06 04:10] LABS: BASO# 0.01 X1000 (0.0-0.2); BASO% 0.1 % (0.0-0.8); EOS% 0.8 % (0.0-10.0); HEMATOCRIT 33.8 % (37.0-47.0); HEMOGLOBIN 11.3 g/dL (12.0-16.0); IMM GRAN# 0.03 X1000 (0.0-0.04); IMM GRAN% 0.2 % (0.0-0.5); LYMPH% 18.2 % (20.5-51.1); MCH 26.6 PG (27-31); MCHC 33.4 g/dL (33-37); MCV 79.5 FL (81-99); MONO# 0.63 X1000 (0.11-0.59); MONO% 4.8 % (1.7-9.3); MPV 9.7 FL (7.4-10.4); NEUT# 10.02 X1000 (1.4-6.5); NEUT% 75.9 % (42.2-75.2); PLT 284 X1000 (130-400); RBC 4.25 XMIL (4.2-5.4); RDW 15.2 % (11.5-14.5); WBC 13.19 X1000 (4.8-10.8)
[2018-09-06 04:43] LABS: AGAP 11; BUN 13 mg/dL (8-22); CALCIUM 8.1 mg/dL (8.8-10.2); CHLORIDE 102 mmol/L (98-107); COSMO 272; CREATININE 0.6 mg/dL (0.5-0.9); ESTIMATED GFR > 60; GLUCOSE 100 mg/dL (70-104); POTASSIUM 3.6 mmol/L (3.5-5.1); SODIUM 136 mmol/L (136-145); TCO2 23 mmol/L (25-35)
[2018-09-06 05:22] LABS: BILIRUBIN URINE NEGATIVE (NEGATIVE); BLOOD URINE 4+ (NEGATIVE); CLARITY SL. CLOUDY (CLEAR); COLOR AMBER; GLUCOSE URINE NEGATIVE (NEGATIVE); KETONE URINE TRACE mg/dL (NEGATIVE); LEUKOCYTES URINE TRACE (NEGATIVE); NITRITE URINE NEGATIVE (NEGATIVE); PROTEIN URINE 1+(30 mg/dL) mg/dL (NEGATIVE); URINE BACTERIA 2+ /HFP; URINE EPITHELIAL CELLS <10 /HPF (<10); URINE RBC 20-40 /HPF (<10); URINE SOURCE CLEAN CATCH; URINE WBC <10 /HPF (<10); UROBILINOGEN URINE 1 mg/dL
--- NOTE | 2018-09-06 05:37 | Diag Imaging Result Doc PS360 ---
EXAM: CHEST-2 VIEWS HISTORY: cough,congestion TECHNIQUE: Chest two views COMPARISON: 08/10/2016 FINDINGS: The lungs are well expanded. No cardiomegaly. No pleural effusions. No pulmonary edema. There are lower lobe densities which are less pronounced in the right lung base than they were on the prior study. There is slightly less pronounced in the left lung base. IMPRESSION: Recurrent infiltrates or persistent nodular opacities. Electronically signed by Carlos Sherwood 09/06/2018 5:35 AM
[2018-09-06] MEDS ORDERED: TYLENOL PO PRN ×2 (05:54→09:20)
[2018-09-06] MEDS ORDERED: ROCEPHIN 1 GM in NS 50 ML IV SCH (06:00)
[2018-09-06] MEDS ORDERED: VANCOMYCIN IV PER PHARMACY MISC SCH (06:00)
[2018-09-06] MEDS ORDERED: TESSALON PO ONE (06:42)
[2018-09-06] MEDS ORDERED: XOPENEX NEB INH PRN ×2 (09:20→09:49)
[2018-09-06] MEDS: LOVENOX SUBQ SCH (10:12)
[2018-09-06] MEDS: NICODERM PATCH TD SCH (10:12)
[2018-09-06 10:14] LABS: ALBUMIN 3.5 g/dL (3.5-5.0); ALKALINE PHOSPHATASE 66 U/L (32-104); DIRECT BILIRUBIN < 0.20 mg/dL (0.00-0.20); GOT 16 U/L (10-30); GPT 10 U/L (10-36); TOTAL PROTEIN 6.7 g/dL (6.3-8.3)
--- NOTE | 2018-09-06 11:05 | HISTORY AND PHYSICAL ---
PRIMARY CARE PHYSICIAN: Dr. Marilu Rodriguez. CHIEF COMPLAINT: Fever, malaise. HISTORY OF PRESENT ILLNESS: Mrs. 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 She also reports dyspnea on exertion, occasional lower extremity edema and orthopnea. She came to the ER today for evaluation and her chest x-ray showed recurrent infiltrates or persistent nodular opacities bilaterally. Her lab show an elevated white count, urinary tract infection, and she is also positive for methamphetamine. She does admit to using IV drugs over the past few months, last time was around 2 weeks ago. She goes in and out of relapse and clean time. Currently, she is hemodynamically stable and will be admitted for further treatment and evaluation. PAST MEDICAL HISTORY: 1. History of endocarditis. 2. History of [id number] TR secondary to endocarditis. 3. History of diskitis. 4. History of MRSA bacteremia status post 3 months of IV antibiotics followed by Dr. Almeida. 5. Polysubstance dependence with a history of IV drug use with amphetamines and opiates. 6. Nicotine dependence. 7. Depression and anxiety. PAST SURGICAL HISTORY: Tubal ligation, tonsillectomy. SOCIAL HISTORY: She smokes half a pack a day. She admits to IV drug use with opiates and smoking amphetamine. She drinks occasionally. She has 2 children and is single on Disability. FAMILY HISTORY: Significant for coronary artery disease and osteoarthritis. HOME MEDICATIONS: Klonopin 0.5 mg p.o. b.i.d., Suboxone 8 mg/2 mg 1 b.i.d., Wellbutrin 150 mg daily, sulindac 150 mg p.o. b.i.d. ALLERGIES: No known drug allergies. REVIEW OF SYSTEMS: A 14-point review of systems obtained and found to be negative with the exception of the HPI. PHYSICAL EXAMINATION: VITAL SIGNS: Blood pressure is 113/73, heart rate is 111, respiratory rate is 18, O2 saturation 98% on room air, temperature is 98.7. GENERAL: This is a somewhat chronically ill-appearing 27-year-old female lying in the hospital bed in no acute distress. NEUROLOGICAL: She is awake, alert, and oriented. Follows commands. No focal deficits. HEENT: Head is atraumatic and normocephalic. Pupils are equal, round, and reactive to light. Oral mucosa is moist. NECK: Trachea is midline. No JVD. CHEST: Diminished at the bases but essentially clear to auscultation bilaterally. CARDIOVASCULAR: Slightly tachycardic and regular. S1 and S2 is noted. A 2/6 systolic ejection murmur noted with no clicks or rubs. GASTROINTESTINAL: Soft, nondistended, nontender. Bowel sounds active. EXTREMITIES: Trace edema. Pulses are 2+ bilaterally. DIAGNOSTIC DATA: Chest x-ray shows recurrent infiltrates or persistent nodular opacities. WBC 13.19, hemoglobin 11.3, hematocrit 33.8, platelet count 284. Sodium 136, potassium 3.6, chloride 102, CO2 23, anion gap 11, BUN 13, creatinine 0.6, glucose 100, calcium 8.1. UA shows probable urinary tract infection. Toxicology is positive for amphetamines and methamphetamines. ASSESSMENT AND PLAN: 1. Sepsis on presentation: The patient meets criteria with tachycardia, low- grade fever, leukocytosis, and source of pneumonia. Lactic acid is within normal limits. Continue broad- spectrum antibiotics with methicillin-resistant Staphylococcus aureus coverage given her history. 2. Bilateral pneumonia: Our hope is for simple community-acquired pneumonia, however, given her continued history of IV drug use, septic emboli, endocarditis and/or bacteremia are all possibilities. We will do a thorax CT with contrast. Continue vancomycin and stop the Rocephin and add cefepime. Blood cultures are pending. 3. Tricuspid regurgitation: The patient has symptoms of congestive heart failure, although, they are not pronounced. We will certainly need to check another echocardiogram to evaluate her valves and to visualize any possible vegetations. Will check a ProBNP now as well. 4. Urinary tract infection: The patient has symptoms of urinary hesitancy and dysuria. Will continue with antibiotics. 5. Nicotine dependence. We have advised the patient to quit smoking. Will add a nicotine patch. Continue cessation education daily. 6. Polysubstance dependence: We have highly advised the patient, given her history especially, to immediately stop any illicit substances including IV drug use. Will continue daily counseling and monitor for signs of withdrawal. She is on Suboxone, which we will continue. 7. Deep venous thrombosis prophylaxis with Lovenox. 8. Further recommendations to follow. Dictated by NOAH Smith for Jose Alejandro Sue MD cc: NOAH Smith MD [facility]
[2018-09-06] MEDS: XOPENEX NEB INH SCH ×4 (11:46→23:25)
--- NOTE | 2018-09-06 12:27 | EKG Report ---
Test Performed on : 09/06/2018 12:15:13 PM Test Reason : dyspnea Blood Pressure : / mmHG Vent. Rate : 100 BPM Atrial Rate : 100 BPM P-R Int : 144 ms QRS Dur : 090 ms QT Int : 350 ms P-R-T Axes : 052 018 040 degrees QTc Int : 451 ms Normal sinus rhythm. Normal ECG When compared with ECG of 10-AUG-2016 09:10, Nonspecific T wave abnormality no longer evident in Inferior leads Confirmed by Estuardo Birch MD ([id number]) on 09/10/2018 4:20:45 AM
--- NOTE | 2018-09-06 14:18 | Diag Imaging Result Doc PS360 ---
EXAM: CT THORAX W/CONTRAST HISTORY: pna, h/o septic emboli and MRSA bacteremia TECHNIQUE: CT chest with intravenous contrast. COMPARISON: 08/11/2016 FINDINGS: No pleural effusions on the current study. No cardiomegaly. No thoracic aortic aneurysm or dissection. Normal opacification of the pulmonary arteries. There are small mediastinal nodes. There are bilateral nodular opacities/infiltrates. These are less numerous and smaller than they were on the prior exam. The majority of these are in the lower lobes on the current study. Previously the majority of these were cavitary. No cavitary lesions on the current study. No bronchiectasis. There are multiple tubular structures filled with fluid and air within the stomach. IMPRESSION: Either recurrence of a multinodular infiltrates or residual scarring. Likely ingested debris in the stomach. This exam was performed using automated exposure control, adjustment of mA or kV according to patient size, and/or use of iterative reconstruction technique. Electronically signed by Carlos Sherwood 09/06/2018 2:16 PM
--- NOTE | 2018-09-06 14:23 | Diag Imaging Result Doc PS360 ---
EXAM: MRI LUMBAR SPINE W/O CONTRAST HISTORY: M54.5-LOW BACK PAIN TECHNIQUE: MRI lumbar spine without contrast COMPARISON: None. FINDINGS: Axial and sagittal images obtained in multiple sequences. There is fusion of the L1 and two vertebra. No compression fracture. No subluxation. No prominent bone spurs. The conus is at L1. T12-L1: Normal disc. No spinal stenosis or cord compression. Neither neural foramen is narrowed. No disc space at L1-2. No spinal stenosis. L2-3: Normal disc. Mild facet hypertrophy. No spinal stenosis. Neither neural foramen is narrowed. L3-4: Normal disc. Mild facet hypertrophy. No spinal stenosis. Neither neural foramen is narrowed. L4-5: Normal disc. Mild facet hypertrophy. No spinal stenosis. Neither neural foramen is narrowed. L5-S1: Normal disc. No spinal stenosis. Neither neural foramen is narrowed. No disc herniation. No disc fragment. There is abnormal signal in the right lateral sacrum extending posteriorly in the sacroiliac joint. There is also abnormal signal in the posterior iliac bone. IMPRESSION: Fractures to the right sacrum and posterior iliac bone. Electronically signed by Carlos Sherwood 09/06/2018 2:21 PM
[2018-09-06] MEDS: MIRALAX PO SCH (14:24)
[2018-09-06] MEDS: MAXIPIME 1 GM in NS 50 ML IV SCH (14:24)
[2018-09-06] MEDS: SUBOXONE 8 MG/2 MG FILM SL SCH ×2 (17:20→23:58)
[2018-09-06 17:26] LABS: HIV ANTIBODY SCREEN SEE COMMENTS
[2018-09-06] MEDS: VANCOMYCIN 1,500 MG in NS 250 ML IV SCH (20:02)
[2018-09-06] MEDS: KLONOPIN PO SCH (20:06)
[2018-09-06] MEDS ORDERED: SUBOXONE 8 MG/2 MG FILM SL SCH (21:00)
--- NOTE | 2018-09-06 23:08 | ECHO REPORT ---
ORDER DATE: 09/06/2018 MEASUREMENTS: Left ventricular internal diameter diastole 4.1, left ventricular internal diameter in systole 1.9, septal thickness 0.7, left atrium 2.8. Aortic root 2.8 SUMMARY: 1. Adequate quality study. 2. Aortic valve is trileaflet and opens normally on 2-dimensional images. Peak gradient across aortic valve is approximately 10 mmHg. Mitral, tricuspid, and pulmonic valves are without evidence of structural abnormality. There is mild to moderate tricuspid regurgitation. Estimated systolic PA pressure by Doppler is 40 mmHg, suggesting mild pulmonary hypertension. The aortic root is normal in size. 3. Normal left ventricular dimensions demonstrated. Estimated left ventricular ejection fraction appears to be at least 65%. No regional wall motion abnormalities are evident. Left atrium, right atrium, right ventricle are normal in size with grossly preserved right ventricular systolic function. 4. No pericardial effusion. 5. Appearance of inferior vena cava suggests normal central venous pressure. cc: MD Jose A Toure CRNP MTDD
--- NOTE | 2018-09-06 23:50 | HISTORY AND PHYSICAL ---
ADDENDUM: Patient seen and examined by myself. Full note dictated and discussed with nurse practitioner. The patient presented to the hospital with fever. Subsequently diagnosed with sepsis, bilateral pneumonia and a probable urinary tract infection. We will admit her to the hospital, place her on antibiotics and we will follow. cc: Jose Alejandro Sue MD
[2018-09-07] MEDS: MAXIPIME 1 GM in NS 50 ML IV SCH ×2 (02:27→15:32)
[2018-09-07] MEDS: XOPENEX NEB INH SCH ×6 (04:17→23:15)
[2018-09-07] MEDS: VANCOMYCIN 1,500 MG in NS 250 ML IV SCH (06:37)
[2018-09-07 07:35] LABS: BASO# 0.02 X1000 (0.0-0.2); BASO% 0.4 % (0.0-0.8); EOS# 0.44 X1000 (0.0-0.7); EOS% 7.8 % (0.0-10.0); HEMATOCRIT 32.9 % (37.0-47.0); HEMOGLOBIN 10.6 g/dL (12.0-16.0); IMM GRAN# 0.01 X1000 (0.0-0.04); IMM GRAN% 0.2 % (0.0-0.5); LYMPH# 2.32 X1000 (1.2-3.4); LYMPH% 41.4 % (20.5-51.1); MCHC 32.2 g/dL (33-37); MCV 80.6 FL (81-99); MONO# 0.32 X1000 (0.11-0.59); MONO% 5.7 % (1.7-9.3); MPV 9.5 FL (7.4-10.4); NEUT% 44.5 % (42.2-75.2); PLT 292 X1000 (130-400); RBC 4.08 XMIL (4.2-5.4); RDW 15.3 % (11.5-14.5); WBC 5.61 X1000 (4.8-10.8)
[2018-09-07 07:49] LABS: AGAP 7; BUN 10 mg/dL (8-22); CALCIUM 7.7 mg/dL (8.8-10.2); CHLORIDE 108 mmol/L (98-107); COSMO 281; CREATININE 0.5 mg/dL (0.5-0.9); ESTIMATED GFR > 60; GLUCOSE 112 mg/dL (70-104); POTASSIUM 4.4 mmol/L (3.5-5.1); SODIUM 141 mmol/L (136-145); TCO2 27 mmol/L (25-35)
[2018-09-07] MEDS: NICODERM PATCH TD SCH (09:27)
[2018-09-07] MEDS: KLONOPIN PO SCH ×2 (09:27→21:05)
[2018-09-07] MEDS: MIRALAX PO SCH (09:28)
[2018-09-07] MEDS: SUBOXONE 8 MG/2 MG FILM SL SCH ×2 (09:28→21:05)
[2018-09-07] MEDS: LOVENOX SUBQ SCH (09:28)
[2018-09-07] MEDS: WELLBUTRIN XL PO SCH (09:28)
[2018-09-07 14:07] LABS: HEPATITIS PROFILE ACUTE SEE COMMENTS
[2018-09-07] MEDS: DOXYCYCLINE PO SCH (21:05)
[2018-09-08] MEDS: MAXIPIME 1 GM in NS 50 ML IV SCH (01:24)
--- NOTE | 2018-09-08 01:36 | PROGRESS NOTE ---
DATE: 09/07/2018 SUBJECTIVE: Patient notes that her breathing is improving. Still having cough nonproductive. Denies any fevers or chills. Denies dysuria or urinary frequency. PHYSICAL EXAMINATION: Vital Signs: Temperature 98 degrees, pulse 92, respiratory rate 18, BP 101/64. General: Patient is awake, alert. She is in no current respiratory distress. HEENT: Normocephalic. Neck: Supple. Cardiovascular: Regular rate. Chest: Clear. Abdomen: Soft. Extremities: Moves all extremities. Neurologic: No changes. ASSESSMENT: 1. Sepsis, resolved. 2. Bilateral pneumonia, improved. 3. Tricuspid regurgitation. 4. Fractures of the right sacrum and right posterior iliac. 5. Urinary tract infection, culture pending. 6. Chronic tobacco abuse. PLAN: We will continue patient in the hospital. Discussed with patient the importance of continuing antibiotics, stopping smoking. We will continue to follow. Continue breathing treatments, oxygen. Hopefully home over the next 1 or 2 days. cc: Jose Alejandro Sue MD
[2018-09-08] MEDS: XOPENEX NEB INH SCH ×2 (03:08→08:15)
[2018-09-08 07:28] LABS: BASO# 0.02 X1000 (0.0-0.2); BASO% 0.3 % (0.0-0.8); EOS# 0.47 X1000 (0.0-0.7); EOS% 7.8 % (0.0-10.0); HEMATOCRIT 32.7 % (37.0-47.0); HEMOGLOBIN 10.8 g/dL (12.0-16.0); IMM GRAN# 0.01 X1000 (0.0-0.04); IMM GRAN% 0.2 % (0.0-0.5); LYMPH# 2.94 X1000 (1.2-3.4); LYMPH% 48.6 % (20.5-51.1); MCH 26.5 PG (27-31); MCV 80.3 FL (81-99); MONO# 0.42 X1000 (0.11-0.59); MONO% 6.9 % (1.7-9.3); MPV 9.2 FL (7.4-10.4); NEUT# 2.19 X1000 (1.4-6.5); NEUT% 36.2 % (42.2-75.2); PLT 352 X1000 (130-400); RBC 4.07 XMIL (4.2-5.4); RDW 15.4 % (11.5-14.5); WBC 6.05 X1000 (4.8-10.8)
[2018-09-08 07:50] LABS: AGAP 7; BUN 13 mg/dL (8-22); CALCIUM 7.9 mg/dL (8.8-10.2); CHLORIDE 107 mmol/L (98-107); COSMO 282; CREATININE 0.5 mg/dL (0.5-0.9); ESTIMATED GFR > 60; GLUCOSE 111 mg/dL (70-104); POTASSIUM 3.5 mmol/L (3.5-5.1); SODIUM 141 mmol/L (136-145); TCO2 28 mmol/L (25-35)
[2018-09-08 08:20] VITALS: BP 101/63
[2018-09-08] MEDS ORDERED: OMNICEF PO SCH (09:00)
[2018-09-08] MEDS: MIRALAX PO SCH (10:13)
[2018-09-08] MEDS: DOXYCYCLINE PO SCH (10:13)
[2018-09-08] MEDS: WELLBUTRIN XL PO SCH (10:13)
[2018-09-08] MEDS: LOVENOX SUBQ SCH (10:13)
--- NOTE | 2018-09-09 08:07 | DISCHARGE SUMMARY ---
ADMISSION DATE: 09/06/2018 DISCHARGE DATE: 09/08/2018 ADDENDUM: Patient seen and examined by myself. Full note dictated and discussed with nurse practitioner. On discharge, patient is awake, alert, in no current distress. She was admitted to the hospital, diagnosed with pneumonia. Thankfully, her echo was improved from previous. She has had a history of endocarditis due to IV drug use. Did discuss with patient the perils of smoking, as well as drug use. She will be discharged home on antibiotics. She will follow up outpatient with her primary care. cc: Jose Alejandro Sue MD
--- NOTE | 2018-09-09 09:03 | DISCHARGE SUMMARY ---
ADMISSION DATE: 09/06/2018 DISCHARGE DATE: 09/08/2018 ADMITTING DIAGNOSES: 1. Sepsis on presentation. 2. Bilateral pneumonia. 3. Tricuspid regurgitation. 4. Questionable urinary tract infection. 5. Nicotine dependence. 6. Polysubstance dependence with intravenous drug use. DISCHARGE DIAGNOSES: 1. Bilateral pneumonia. 2. Tricuspid regurgitation. 3. History of endocarditis, methicillin-resistant Staphylococcus aureus bacteremia and diskitis. 4. Polysubstance dependence with intravenous drug use. CONSULTATIONS: None. DIAGNOSTIC PROCEDURES AND FINDINGS: Chest x-ray on 09/06/2018 with recurrent infiltrates or persistent nodular opacities. Chest creatinine on 09/06/2018 with recurrence of multinodular infiltrates or residual scarring, likely ingested debris in the stomach. Echocardiogram on 09/06/2018 with EF of 65%, no regional wall motion abnormalities. Mild to moderate TR. L spine MRI on 09/06/2018 with abnormal signal in the right lateral sacrum extending posteriorly into the SI joint. There is also abnormal signal in the posterior iliac bone. HOSPITAL COURSE: Ms. Sullivan is a 27-year-old female with a history of IV drug use, who has had previous MRSA bacteremia endocarditis with subsequent TR and diskitis in the past and has completed IV antibiotics. Unfortunately over the past few weeks and months, she has had recurrences of relapses and used IV drugs on more than a few occasions. She came in to the ER with a 3-day history of fever and cough with yellow-green sputum production and shortness of breath. In the ER, she had chest x-rays which showed recurrent infiltrates or persistent nodular opacities bilaterally, and she had a white count on presentation. Flu screen was negative, but given her history, there was concern that she had recurrent endocarditis or septic emboli. We did check a CT of her chest which showed recurrence of multinodular infiltrates or residual scarring. We went ahead and put her on vancomycin and cefepime given her history of MRSA. We also checked an MRI of her lumbar spine which did show some abnormal enhancement of the right lateral sacrum extending posteriorly into the SI joint as well as posterior iliac bone. She denied any trauma to the pelvis. No real pain, and there was no decreased range of motion. We also rechecked an echocardiogram which showed no change in her mild to moderate tricuspid regurgitation and slightly elevated pulmonary pressure. There was no obvious vegetation seen. She improved significantly on a day-to-day basis, and as of today, her blood cultures remain negative, and her laboratory data has improved to where she has no white count. We went ahead and checked a hepatitis and HIV screen which were both nonreactive, and of course we counseled her significantly on drug use and tobacco use and did write her a nicotine patch daily. Overall today, she is hemodynamically stable and afebrile and stable for discharge home. DISCHARGE MEDICATIONS: Wellbutrin 150 mg p.o. daily, Suboxone 8 mg/2 mg one sublingual b.i.d., Klonopin 0.5 mg p.o. b.i.d., doxycycline 100 mg p.o. b.i.d. for 5 days, Omnicef 100 mg p.o. b.i.d. for 5 days, acetaminophen 650 mg p.o. q.6 hours as needed for pain or fever. DISCHARGE ACTIVITY: Resume activity as tolerated. DISCHARGE DIET: Regular. DISPOSITION AND OTHER DISCHARGE INSTRUCTIONS: The patient is discharged home to self care. She is to continue antibiotics to completion. She is to continue all other medications as directed. We have encouraged her to stop using any illicit substance and follow up with 12-step group of her choice and/or nursing home therapy. She is to return to the ER or call 911 for worsening complaints or concern. All questions answered. Discharge time greater than 35 minutes. Dictated by NOAH Smith for Jose Alejandro Sue MD cc: NOAH Smith MD
== END 2018-09-08 11:05 | disposition home or self-care (01) | DRG 871 ==
LOC: P.ED 01:23 → P.MEDSURG 07:37
PROVIDERS: ATTEND Family Medicine
CPT/HCPCS: 71020; 71046; 71260; 72148; 80048; 80074; 80076; 80104; 80301; 80305; 81001; 81025; 82550; 83605; 83880; 84484; 85025; 86701; 87040; 87088; 87275; 87276; 87389; 87804; 93005; 93010; 93306; 94640; 94667; 94761; 96365; 96367; 99285; A9270; G0431; G0434; G0477; J0692; J0696; J1650; J3370; J7030; J7050; Q9967